=== PATIENT | male | born 1980 | race Caucasian/White ===

== ENCOUNTER → 2019-05-19 00:01 | Outpatient (RCR) | payer MEDICAID, SELFPAY | LOC: ONCMED 04-20 08:35 | PROVIDERS: Family Provider Family Medicine; Visit Provider Internal Medicine Hematology & Oncology | DX: Z51.12 Encounter for antineoplastic immunotherapy (principal); C83.39 Diffuse large B-cell lymphoma, extranodal and solid organ sites; R91.8 Other nonspecific abnormal finding of lung field; Z79.899 Other long term (current) drug therapy ==

== ENCOUNTER 2019-06-10 05:32 | Outpatient (RCR) | payer MEDICAID, SELFPAY ==
[2019-06-10 09:27] LABS: Basophils # 0.1 10^3/uL (0.0-0.1); Basophils % 0.6 %; Eosinophils # 0.1 10^3/uL (0.0-0.8); Eosinophils % 0.6 %; Hematocrit 42.9 % (42.0-52.0); Hemoglobin 14.5 g/dL (11.7-16.6); Lymphocytes # 0.8 10^3/uL (0.8-4.8); Lymphocytes % 4.8 %; Mean Corpuscular HGB Conc 33.8 g/dL (30.0-36.0); Mean Corpuscular Hemoglobin 31.1 pg (28.0-34.0); Mean Corpuscular Volume 92.1 fL (80-94); Mean Platelet Volume 9.4 fL (7.4-10.4); Monocytes # 1.1 10^3/uL (0.2-0.9); Monocytes % 6.3 %; Neutrophils % 86.9 %; Nucleated Red Blood Cells % 0 %; Platelet Count 522 10^3/cmm (130-400); Red Blood Count 4.66 10^6/uL (4.1-5.3); Red Cell Distribution Width 13.5 % (12.1-15.1); White Blood Count 17.3 10^3/uL (4.0-10.0)
[2019-06-10 09:42] LABS: Alanine Aminotransferase 13 U/L (0-41); Albumin Level 3.9 g/dL (3.5-5.2); Alkaline Phosphatase 129 IU/L (40-130); Anion Gap 14.7 (5-19); Aspartate Amino Transferase 11 U/L (0-40); Blood Urea Nitrogen 14 mg/dL (6-20); Calcium 9.9 mg/Dl (8.6-10.0); Carbon Dioxide 24 mmol/L (22-29); Chloride 101 mmol/L (98-107); Globulin 2.4 g/dL (1.3-4.6); Glomerular Filtration Rate 124.9 mL/min (90-130); Glucose 144 mg/dL (74-109); Lactate Dehydrogenase 166 U/L (135-225); Potassium 3.7 mmol/L (3.5-5.1); Sodium 136 mmol/L (136-145); Total Bilirubin 0.3 mg/dL (0.15-1.2); Total Protein 6.3 g/dL (6.6-8.7)
--- NOTE | 2019-06-10 10:19 | ONC FU_ITS ---
Dr. Lopez follow up note Patient: Giovany Hernandez Unit #: [id number]: 1980 Dicatated By: Iris Lopez M.D.Date of Visit:Jun 10, 2019 Onc Med Follow-up/Prog Note History of Present Illness: Mr. Hernandez is a 38 -year-old gentleman with a year-long history of sleep apnea like symptoms, and hearing loss in left ear. He required assistance with hearing aids. He was seen by Dr Mullen for chronic sinusitis and mild to moderate nasal obstruction. Dr Mullen noted left nasopharyngeal and oropharyngeal mass. Patient underwent biopsies on 05/28/2018 which confirmed high-grade B-cell lymphoma, with CD21 stain highlights many disrupted follicular dendritic cell meshwork associated with the B-cell infiltrate. While this finding may represent background tonsillar architertcture the probability of an underlying follicular lymphoma cannot be entirely excluded. Negative for EB virus, and cMyc was also negative. Patient denies any night sweats, patient denies any weight loss, patient denies any recurrent fever. E.g. no B symptoms. Patient denies any shortness of breath, patient denies any dysphagia, patient denies any abdominal pain or fullness, patient denies any other peripheral lymphadenopathy except fullness/mass in upper neck bilaterally. CT PET scan done on 06/26/2018 showed large highly FDG avid mass in the nasopharynx interposed between the spine and airways displacing the airway anteriorly and additional contiguous FDG avid lesion in the left palatine tonsil region with several large highly FDG avid lymph nodes with SUV maximum 13.6 and 14.95 lymph node anterior to the left sternocleidomastoid muscle with SUV of 14.6 there is a node in the right parapharyngeal space with SUV of 12.95 days and FDG avid mass lateral to the right submandibular gland with SUV of 6.1. Lateral to the right hilum with SUV of 1.29. No significant FDG avid nodules or lymph nodes are seen in the yonatan or mediastinum or below diaphragm. Spleen is within normal limit Mr. Hernandez was recommended to undergo R???CHOP. He did receive Neulasta support. His 3rd treatment was on 09/10/2018. Follow-up CT PET scan was ordered but patient lost Medicaid so could not get his CT PET scan and decided not to pursue further chemotherapy on his own. Multiple attempts were made to contact him but patient never responded and never called our office until came back on 03/19/2019 with progressive right submandibular mass, original primary site. Mr Hernandez presented complaining of progressive right submandibular mass the last 2 months. Patient said his night neck mass with chemotherapy was gone completely and he was supposed to get CT PET scan after third cycle of chemotherapy but he lost his Medicaid coverage so could not get CT PET done. He then decided not to do anything as he was feeling much better and never contacted my office, reason unknown. Denies any night sweats or fever chills denies any weight loss denies any nausea or vomiting denies any dysphagia denies any shortness of breath denies any abdominal fullness. Patient underwent to [facility] for evaluation on 03/07/2019 with left side pain and right lower jaw mass ???1-2 months, right neck soft tissue sonogram was ordered and done on 03/11/2019 which showed 3.7 x 3.2 x 4.4 cm mass in the right submandibular area and several regional hypoechoic structure measuring 1.8 x 1.3 x 1.2 cm are suggestive of atypical lymph nodes. . Echocardiogram done on 03/25/2019 showed ejection fraction 68% Underwent CT PET scan on 04/11/2019 and it showed asymmetrically increase activity in the right nasopharynx, suggesting lymphomatous involvement. A dominant, centrally necrotic mass in the right Ib cervical territory measures 4.5 x 3.7 cm with SUV of 6.2. A second lymph node in the right IIb territory measures 1.7 cm with SUV of 14.2. There are multiple FDG positive right lung nodules, consistent with metastatic disease. The dominant lesion measured 1.7 x 2 cm with SUV of 5.1. Next Scattered left lung nodules are too small to characterize with FDG imaging. Started on R- CHOP, cycle #4/6 (patient did not return after third cycle of chemotherapy given on 09/10/2018) on 04/14/2019. Came for follow-up, denies any specific complaints, as per sometime he feels dizzy but no headaches no blurred vision or double vision patient admitted using marijuana off and on and last and was used about 2 [address] ago[address] other street drugs. No fever or chills no nausea or vomiting no shortness of breath no peripheral numbness, no lower extremity edema. Tolerating systemic chemotherapy well and right mandible mass is responding very well Medications: Ativan Tablet Oral PRN, Citalopram Hydrobromide 1 Tablet (of 40 mg) Oral daily, predniSONE 1 Tablet (of 50 mg) Oral daily, PriLOSEC 1 Capsule (of 20 mg) Capsule Delayed Release Oral daily, Prochlorperazine Maleate Tablet Oral PRN Allergies: No Known Allergies. Review of Systems: Constitutional - Appetite is fair and weight is stable. No fever, chills, hot flashes, or night sweats. Energy level is good, ENMT - Negative for sinus congestion/drainage. No mouth sores, Hematologic/Lymphatic - No abnormal bruising or bleeding, Respiratory - No shortness of breath. No cough. No pleuritic pain or hemoptysis, Cardiovascular - No angina pain. No palpitations, Gastrointestinal - No nausea or vomiting. No heartburn or acid reflux. No diarrhea or constipation. No blood in the stool or black stools, Genitourinary (M) - No dysuria or hematuria. No urinary frequency. No urgency or incontinence, Musculoskeletal - No joint or bone pain, Neurologic - No headache. Pt reports occasional dizziness. No numbness/paresthesias or other focal neurologic symptoms, Psychiatric - No anxiety or depression. No insomnia. Vital Signs: Performed on Jun 10, 2019 09:50 Height - 68.00 in Weight - 168.8 lbs (LOW) BSA - 1.90 sq.m BMI - 25.67 Temperature - 97.6 F (LOW) Pulse - 85 /min Respiration - 24 /min BP - 109/70 mm(hg) O2 Sat - 97 % Pain - 0 Performance Status: 0 - Fully active, able to carry on all predisease activities without restrictions. (ECOG) Physical Examination: ENMT - No oral exudates, ulcers, masses, thrush or mucositis. Oropharynx clear. Tongue normal.Right submandibular mass is decreasing in size now about 2 cm. Nontender, Respiratory - Lungs are clear to auscultation without rhonchi or wheezing, Cardiovascular - Regular rate and rhythm of heart, Abdomen - Non-tender, non-distended, Good bowel sounds. No guarding or rebound tenderness. No pulsatile masses, Extremities - no edema. Lab/Imaging: Test performed on May 18, 2019 08:10 LDH (Total) 223 U/L Sodium 140 mmol/L Potassium 4.0 mmol/L Chloride 98 mmol/L CO2 25 mmol/L Anion Gap 21.0 BUN 11 mg/dL Creatinine 0.7 mg/dL Cr Clearance (Est) 171.1800 mL/min eGFR 124.9 mL/min Glucose 86 mg/dl Calcium 10.7 mg/dL Protein, Total 7.2 g/dL Albumin 5.6 g/dL Globulin 1.6 gm/dL Bilirubin, Total 0.3 mg/dL ALT (SGPT) 21 U/L AST (SGOT) 16 U/L Alkaline Phosphatase 154 U/L WBC 14.6 10 3/uL RBC 5.42 10 6/uL HGB 16.0 g/dL HCT 49.3 % MCV 91.0 fl MCH 29.5 pg MCHC 32.5 g/dl RDW 12.7 % Platelet Count 582 10 3/cmm MPV 10.1 fl Neutrophils 11.8 10 3/uL Lymphocytes 1.4 10 3/uL Monocytes 1.0 10 3/uL Eosinophils 0.3 10 3/uL Basophils 0.1 10 3/uL Neutrophil % 80.7 % Lymphocyte % 9.3 % Monocyte % 6.5 % Eosinophil % 1.9 % Basophils % 0.8 % Test performed on Apr 20, 2019 08:35 CBC Slide Review Y Test performed on Apr 13, 2019 13:30 Hepatitis B Surf Antigen Non-Reactive Hepatitis B Surface Ab < 3.5 STATUS of IMMUINITY Inconsistent with Immunity 0.0 - 8.5 mIU/mL Consistent with Immunity >8.5 mIU/mL Hepatitis B Core Ab, Total Non-Reactive Impression: High-grade B-cell lymphoma per biopsies of left nasopharyngeal and oropharyngeal mass done on 05/28/2018 Other morphological findings and CD21 stain highlights many disrupted follicular dendritic cell meshworks associated with B-cell infiltrate. While this findings may represent background tonsil architecture, the probability of an underlying follicular lymphoma cannot be entirely excluded Flow cytometry revealed monotypic B-cell population with a germinal center phenotype Immunohistochemistry showed CD20 positive B cells. CD3 highlights scattered admixed small T cells. B cells are positive for BCL 6 and BCL 2 bu negative for t cMYC . And negative for EB virus, Ki-67 reveals a proliferative index ranging from 60-90%. CT PET scan done on 06/26/2018 showed large FDG avid mass expanding the prevertebral soft tissue at the level of the nasopharynx displacing the airway anteriorly and compressing it with SUV of 14.96. There is an adjacent enlarged left palatine tonsil region with SUV of 14.95. There is an adjacent lymph node with SUV of 13.5 and a larger lymph node anterior to the left sternocleidomastoid muscle at the level of then will of mandible with SUV of 14.6. There is a node in the right parapharyngeal space with SUV of 12.95. There is an FDG avid mass lateral to the right submandibular gland with SUV of 6.01. Clinical stage II There is a small nodule lateral to the right hilum with SUV of 1.29. No significant FDG avid nodules are lymph node and yonatan or mediastinal. s/p 3 cycles of chemotherapy with R CHOP and CT PET scan. Was ordered and because of loss of Medicaid coverage he could not get that done and also never came back to office despite of repeated calls. patient is having progressive symptoms specific deep back pain or progressive right submandibular mass/lymphoma, insurance is still taking that time to approve PET scan, in that case we will proceed with CT scan of neck chest abdomen pelvis and also his repeat echocardiogram done on 03/25/2019 showed ejection fraction 68% in that case we we will proceed with R-CHOP, as patient responded very well in the past and plan to give him 3 cycles of this regimen followed by CT PET scan to assess response. Plan: Discussed with patient regarding his labs white blood count 17.3 hemoglobin 14.5 crit 42.9 platelets 522,000 CMP within normal limit except sugar 144 Clinically, patient is doing well tolerating systemic chemotherapy with CHOP-R well but with expected side effects. We'll proceed with last dose of chemotherapy and R CHOP and then he will return to clinic in 2 weeks with CBC CMP and will also consider follow-up CT PET scan to assess the disease response and if patient achieved complete remission then being young, will refer him to bone marrow transplant clinic for evaluation for high-dose chemotherapy with stem cell support. If there is a persistent or progressive disease then will consider salvage therapy Signed By: Iris Lopez M.D. <<Signature on File>>
[2019-06-10] MEDS: acetaminophen 325 mg Tablet 650 MG PO (10:48)
[2019-06-10] MEDS: sodium chloride 0.9% 500 ML 999 ML IV (11:46)
[2019-06-10] MEDS: pegfilgrastim 6 mg/0.6 mL Kit (onpro) SUBCUT (16:30)
== END 2019-06-19 23:59 | disposition home or self-care (01) ==
LOC: ONCMED 05:32
PROVIDERS: Family Provider Family Medicine; PCP Family Medicine; Visit Provider Internal Medicine Hematology & Oncology
DX: Z51.12 Encounter for antineoplastic immunotherapy (principal); Z51.11 Encounter for antineoplastic chemotherapy; C83.31 Diffuse large B-cell lymphoma, lymph nodes of head, face, and neck
CPT/HCPCS: 80053; 83615; 85025; 96367; 96372; 96411; 96413; 96415; 96417; 99214; J1100; J1200; J1453; J2469; J2505; J7040; J9000; J9070; J9312; J9370

== ENCOUNTER 2019-07-29 09:10 | Outpatient (CLI) | payer MEDICAID, SELFPAY ==
[2019-07-29 17:10] LABS: Alanine Aminotransferase 24 U/L (0-41); Albumin Level 3.9 g/dL (3.5-5.2); Alkaline Phosphatase 111 IU/L (40-130); Anion Gap 14.2 (5-19); Aspartate Amino Transferase 20 U/L (0-40); Blood Urea Nitrogen 21 mg/dL (6-20); Calcium 9.5 mg/dL (8.5-10.5); Carbon Dioxide 28 mmol/L (22-29); Chloride 104 mmol/L (98-107); Globulin 2.1 g/dL (1.3-4.6); Glomerular Filtration Rate 149.2 mL/min (90-130); Glucose 96 mg/dL (65-115); Osmolality Calculated 290 mOsm/kg (285-295); Potassium 4.2 mmol/L (3.5-5.1); Sodium 142 mmol/L (136-145); Total Bilirubin 0.2 mg/dL (0.15-1.2)
[2019-07-29 17:12] LABS: Basophils # 0.1 10^3/uL (0.0-0.1); Basophils % 0.8 %; Eosinophils # 0.5 10^3/uL (0.0-0.8); Eosinophils % 6.8 %; Hematocrit 43.4 % (42.0-52.0); Hemoglobin 13.7 g/dL (11.7-16.6); Lymphocytes # 1.2 10^3/uL (0.8-4.8); Mean Corpuscular HGB Conc 31.6 g/dL (30.0-36.0); Mean Corpuscular Hemoglobin 31.9 pg (28.0-34.0); Mean Corpuscular Volume 101.2 fL (80-94); Mean Platelet Volume 9.8 fL (7.4-10.4); Monocytes # 0.8 10^3/uL (0.2-0.9); Monocytes % 10.5 %; Neutrophils # 5.1 10^3/uL (1.8-7.7); Nucleated Red Blood Cells % 0 %; Platelet Count 330 10^3/cmm (130-400); Red Blood Count 4.29 10^6/uL (4.1-5.3); Red Cell Distribution Width 13.3 % (12.1-15.1); White Blood Count 7.7 10^3/uL (4.0-10.0)
== END 2019-07-29 09:11 | disposition home or self-care (01) ==
LOC: ONCMED 18:13
PROVIDERS: Family Provider Family Medicine; PCP Family Medicine; Visit Provider Internal Medicine Hematology & Oncology
DX: C85.10 Unspecified B-cell lymphoma, unspecified site (principal)
CPT/HCPCS: 80053; 85025

== ENCOUNTER 2019-09-14 11:43 | Outpatient (CLI) | payer MEDICAID, SELFPAY | END 2019-09-14 11:44 | disposition home or self-care (01) | LOC: ONCMED 11:44 | PROVIDERS: Family Provider Family Medicine; PCP Family Medicine; Visit Provider Internal Medicine Hematology & Oncology | DX: Z45.2 Encounter for adjustment and management of vascular access device (principal); C85.10 Unspecified B-cell lymphoma, unspecified site | CPT/HCPCS: 96523 ==

== ENCOUNTER 2019-09-15 13:26 | Emergency (ER) | payer MEDICAID, SELFPAY ==
[2019-09-15 13:27] VITALS: BP 108/65; PULSE 62; RESP 16; TEMP 37; O2SAT 99; BMI 24.3
--- NOTE | 2019-09-15 13:45 | W.ED.DIZZY ---
HPI - Dizziness General: Chief Complaint: Dizziness Stated Complaint: N/V, dizziness, weakness History of Present Illness: Associated symptoms: Reports malaise, nausea and vomiting Review of Systems General: Reports: 10 or more systems reviewed and unremarkable except in HPI and below Const: Reports: body aches, fatigue and malaise GI: Reports: nausea and vomiting Neuro: Reports: dizziness PFSH ED PFSH: Social History Smoking and tobacco status: current every day smoker cigarettes Packs smoked per day: 1 Quit status (tobacco): not considering quitting Second hand smoke exposure: No Alcohol intake: never Caregiver/support person: Yes Lives independently: No History of recent travel: No Current gender identity: Male Physical Exam Const: COMMON NORMALS: oriented x3 and alert GENERAL APPEARANCE: anxious, disheveled and ill appearing ORIENTATION/CONSCIOUSNESS: Yes awake, Yes oriented to person, Yes oriented to place and Yes oriented to time HENMT: MOUTH: moist mucous membranes not abnormal Neck/C-Spine: COMMON NORMALS: full ROM, no lymphadenopathy and no meningeal signs Resp: COMMON NORMALS: normal respiratory effort, no retractions, no use of accessory muscles and clear to auscultation bilaterally AUSCULTATION: clear to auscultation bilaterally Cardio: COMMON NORMALS: regular rate and regular rhythm RATE: regular rate RHYTHM: regular rhythm GI: COMMON NORMALS: normal to inspection, nondistended, normoactive bowel sounds Extremity: COMMON NORMALS: normal to inspection and full ROM Neuro: COMMON NORMALS: oriented x3 SENSORIUM/ORIENTATION: Yes alert, Yes oriented to person, Yes oriented to place and Yes oriented to time MENINGEAL SIGNS: Yes no meningeal signs Skin: COMMON NORMALS: no rashes or lesions noted, no jaundice and no mottling GENERAL SKIN EXAM: no rashes or lesions noted Course Vital Signs: Vital signs: Vital Signs Temperature 98.6 F 09/15/19 13:27 Pulse Rate 62 09/15/19 13:27 Respiratory Rate 16 09/15/19 13:27 Blood Pressure 108/65 09/15/19 14:02 Pulse Oximetry 99 09/15/19 13:27 MDM - Dizziness Lab Data: Labs: Lab Results 09/15/19 09/15/19 09/15/19 Range/Units 13:50 13:50 13:50 WBC 12.2 H (4.0-10.0) 10^3/ uL RBC 5.46 H (4.1-5.3) 10^6/u L Hgb 16.7 H (11.7-16.6) g/dL Hct 51.2 (42.0-52.0) % MCV 93.8 (80-94) fL MCH 30.6 (28.0-34.0) pg MCHC 32.6 (30.0-36.0) g/dL RDW 11.8 L (12.1-15.1) % Plt Count 358 (130-400) 10^3/c mm MPV 9.1 (7.4-10.4) fL Neut % (Auto) 84.8 % Lymph % (Auto) 7.3 % [place] % (Auto) 6.5 % Eos % (Auto) 0.7 % Baso % (Auto) 0.3 % Neut # (Auto) 10.3 H (1.8-7.7) 10^3/u L Lymph # (Auto) 0.9 (0.8-4.8) 10^3/u L [place] # (Auto) 0.8 (0.2-0.9) 10^3/u L Eos # (Auto) 0.1 (0.0-0.8) 10^3/u L Baso # (Auto) 0.0 (0.0-0.1) 10^3/u L Nucleated RBC % (a uto) 0 % Nucleated RBCs # 0.0 /100WBC Sodium 142 (136-145) mmol/L Potassium 4.4 (3.5-5.1) mmol/L Chloride 99 (98-107) mmol/L Carbon Dioxide 31 H (22-29) mmol/L Anion Gap 16.4 (5-19) BUN 16 (6-20) mg/dL Creatinine 0.9 (0.7-1.2) mg/dL GFR Calculation 93.5 (90-130) mL/min Glucose 100 (65-115) mg/dL Calculated Osmolal ity 290 (285-295) mOsm/k g Lactate 1.7 (0.5-2.2) mmol/L Calcium 10.4 (8.5-10.5) mg/dL Total Bilirubin 0.3 (0.15-1.2) mg/dL AST 14 (0-40) U/L ALT 18 (0-41) U/L Alkaline Phosphata se 149 H (40-130) IU/L Total Protein 7.2 (6.6-8.7) g/dL Albumin 4.6 (3.5-5.2) g/dL Globulin 2.6 (1.3-4.6) g/dL Lipase 31 (13-60) U/L TSH 1.73 (0.27-4.20) uIU/ mL Discharge Plan Discharge Prescriptions: No Action citalopram 40 mg tablet 40 mg PO DAILY RF: 0 omeprazole 20 mg capsule,delayed release(DR/EC) 20 mg PO DAILY RF: 0 Coding Level of Care Code ED Smelter Operator for Sarai Rodriguez
[2019-09-15 13:59] LABS: Basophils % 0.3 %; Eosinophils # 0.1 10^3/uL (0.0-0.8); Eosinophils % 0.7 %; Hematocrit 51.2 % (42.0-52.0); Hemoglobin 16.7 g/dL (11.7-16.6); Lymphocytes # 0.9 10^3/uL (0.8-4.8); Lymphocytes % 7.3 %; Mean Corpuscular HGB Conc 32.6 g/dL (30.0-36.0); Mean Corpuscular Hemoglobin 30.6 pg (28.0-34.0); Mean Corpuscular Volume 93.8 fL (80-94); Mean Platelet Volume 9.1 fL (7.4-10.4); Monocytes # 0.8 10^3/uL (0.2-0.9); Monocytes % 6.5 %; Neutrophils # 10.3 10^3/uL (1.8-7.7); Neutrophils % 84.8 %; Nucleated Red Blood Cells % 0 %; Platelet Count 358 10^3/cmm (130-400); Red Blood Count 5.46 10^6/uL (4.1-5.3); Red Cell Distribution Width 11.8 % (12.1-15.1); White Blood Count 12.2 10^3/uL (4.0-10.0)
[2019-09-15 14:02] VITALS: BP 108/65
[2019-09-15] MEDS: sodium chloride 0.9% 1,000 ML 999 ML IV ×2 (14:07→15:37)
[2019-09-15 14:12] LABS: Lactate (Lactic Acid level) 1.7 mmol/L (0.5-2.2)
[2019-09-15 14:22] LABS: Alanine Aminotransferase 18 U/L (0-41); Albumin Level 4.6 g/dL (3.5-5.2); Alkaline Phosphatase 149 IU/L (40-130); Anion Gap 16.4 (5-19); Aspartate Amino Transferase 14 U/L (0-40); Blood Urea Nitrogen 16 mg/dL (6-20); Calcium 10.4 mg/dL (8.5-10.5); Carbon Dioxide 31 mmol/L (22-29); Chloride 99 mmol/L (98-107); Creatinine Clr Calc Pharmacy 108.1327; Globulin 2.6 g/dL (1.3-4.6); Glomerular Filtration Rate 93.5 mL/min (90-130); Glucose 100 mg/dL (65-115); Lipase 31 U/L (13-60); Osmolality Calculated 290 mOsm/kg (285-295); Potassium 4.4 mmol/L (3.5-5.1); Sodium 142 mmol/L (136-145); Thyroid Stimulating Hormone 1.73 uIU/mL (0.27-4.20); Total Bilirubin 0.3 mg/dL (0.15-1.2); Total Protein 7.2 g/dL (6.6-8.7)
[2019-09-15 15:02] LABS: Add Urine Microscopic? NO
[2019-09-15 15:10] VITALS: PULSE 56; RESP 15; O2SAT 98
[2019-09-15 15:13] LABS: Urine Appearance Clear (CLEAR); Urine Color Yellow (Yellow); pH Urine 9 (5-7)
[2019-09-15 15:14] LABS: Bilirubin Urine Neg (NEGATIVE); Blood Urine Neg (Negative); Glucose Urine UA Norm (Normal); Ketones Urine Negative (Negative); Leukocyte Esterase Urine Negative (Negative); Nitrate Urine Negative (Negative); Protein Urine Neg (Negative); Sulfosalicylic Acid Urine Negative (Negative); Urobilinogen Urine Norm (Negative)
[2019-09-15 16:00] VITALS: BP 102/64; PULSE 48; RESP 15; O2SAT 100
[2019-09-15 16:50] VITALS: BP 100/66; PULSE 51; RESP 16; O2SAT 100
== END 2019-09-15 16:48 | disposition home or self-care (01) ==
PROVIDERS: Emergency Provider Family Medicine; Family Provider Family Medicine; PCP Family Medicine
DX: R42 Dizziness and giddiness (principal); F17.210 Nicotine dependence, cigarettes, uncomplicated
CPT/HCPCS: 12345; 36415; 80053; 81003; 83605; 83690; 84443; 85025; 87040; 96360; 96361; 96374; 99283; J7030

== ENCOUNTER 2019-10-01 07:04 | Outpatient (CLI) | payer MEDICAID, SELFPAY ==
--- NOTE | 2019-10-01 18:02 | ONC FU_ITS ---
Dr. Lopez follow up note Patient: Giovany Hernandez Unit #: [id number]: [id number] Dicatated By: Iris Lopez M.D.Date of Visit:October 01, 2019 Onc Med Follow-up/Prog Note History of Present Illness: Mr. Hernandez is a 38 -year-old gentleman with a year-long history of sleep apnea like symptoms, and hearing loss in left ear. He required assistance with hearing aids. He was seen by Dr Mullen for chronic sinusitis and mild to moderate nasal obstruction. Dr Mullen noted left nasopharyngeal and oropharyngeal mass. Patient underwent biopsies on 05/28/2018 which confirmed high-grade B-cell lymphoma, with CD21 stain highlights many disrupted follicular dendritic cell meshwork associated with the B-cell infiltrate. While this finding may represent background tonsillar architertcture the probability of an underlying follicular lymphoma cannot be entirely excluded. Negative for EB virus, and cMyc was also negative. Patient denies any night sweats, patient denies any weight loss, patient denies any recurrent fever. E.g. no B symptoms. Patient denies any shortness of breath, patient denies any dysphagia, patient denies any abdominal pain or fullness, patient denies any other peripheral lymphadenopathy except fullness/mass in upper neck bilaterally. CT PET scan done on 06/26/2018 showed large highly FDG avid mass in the nasopharynx interposed between the spine and airways displacing the airway anteriorly and additional contiguous FDG avid lesion in the left palatine tonsil region with several large highly FDG avid lymph nodes with SUV maximum 13.6 and 14.95 lymph node anterior to the left sternocleidomastoid muscle with SUV of 14.6 there is a node in the right parapharyngeal space with SUV of 12.95 days and FDG avid mass lateral to the right submandibular gland with SUV of 6.1. Lateral to the right hilum with SUV of 1.29. No significant FDG avid nodules or lymph nodes are seen in the yonatan or mediastinum or below diaphragm. Spleen is within normal limit Mr. Hernandez was recommended to undergo R???CHOP. He did receive Neulasta support. His 3rd treatment was on 09/10/2018. Follow-up CT PET scan was ordered but patient lost Medicaid so could not get his CT PET scan and decided not to pursue further chemotherapy on his own. Multiple attempts were made to contact him but patient never responded and never called our office until came back on 03/19/2019 with progressive right submandibular mass, original primary site. Mr Hernandez presented complaining of progressive right submandibular mass the last 2 months. Patient said his night neck mass with chemotherapy was gone completely and he was supposed to get CT PET scan after third cycle of chemotherapy but he lost his Medicaid coverage so could not get CT PET done. He then decided not to do anything as he was feeling much better and never contacted my office, reason unknown. Denies any night sweats or fever chills denies any weight loss denies any nausea or vomiting denies any dysphagia denies any shortness of breath denies any abdominal fullness. Patient underwent to [facility] for evaluation on 03/07/2019 with left side pain and right lower jaw mass ???1-2 months, right neck soft tissue sonogram was ordered and done on 03/11/2019 which showed 3.7 x 3.2 x 4.4 cm mass in the right submandibular area and several regional hypoechoic structure measuring 1.8 x 1.3 x 1.2 cm are suggestive of atypical lymph nodes. . Echocardiogram done on 03/25/2019 showed ejection fraction 68% Underwent CT PET scan on 04/11/2019 and it showed asymmetrically increase activity in the right nasopharynx, suggesting lymphomatous involvement. A dominant, centrally necrotic mass in the right Ib cervical territory measures 4.5 x 3.7 cm with SUV of 6.2. A second lymph node in the right IIb territory measures 1.7 cm with SUV of 14.2. There are multiple FDG positive right lung nodules, consistent with metastatic disease. The dominant lesion measured 1.7 x 2 cm with SUV of 5.1. Next Scattered left lung nodules are too small to characterize with FDG imaging. Started on R- CHOP, cycle #4/6 (patient did not return after third cycle of chemotherapy given on 09/10/2018) on 04/14/2019.and subsequently completed #6/6 chemotherapy with R CHOP on 06/10/2019 follow-up CT PET scan done on 07/18/2019 showed interval resolution of right nasopharyngeal uptake. Right cervical adenopathy demonstrate an essentially complete response to therapy bilateral pulmonary nodules are now subcentimeter in size and FDG negative. X Patient again, Lost follow-up and did not pursue further treatment or evaluation Came for follow-up, complaining of nausea vomiting for the last 3 weeks, has lost 20+ pounds weight. Patient said he went to hospital 10 days ago, he was diagnosed with gastroenteritis and treated with IV fluids and antibiotics and discharge home, since then he still having nausea vomiting, dizziness and off and on blurred vision. Denies any dysphagia, denies any hemoptysis or hematemesis, denies any night sweats, denies recent fever, denies any focal weakness. When asked about no-show on his return appointments patient said because of personal and social/financial reasons, he could not keep up with appointments moreover he was feeling very well until 3 weeks ago when he started having nausea vomiting. Medications: Citalopram Hydrobromide 1 Tablet (of 40 mg) Oral daily, predniSONE 1 Tablet (of 50 mg) Oral daily, PriLOSEC 1 Capsule (of 20 mg) Capsule Delayed Release Oral daily, Prochlorperazine Maleate Tablet Oral PRN Allergies: No Known Allergies. Review of Systems: Constitutional - Appetite is poor and weight is decreasing. No fever, chills, hot flashes, or night sweats. Energy level is poor, ENMT - Negative for sinus congestion/drainage. No mouth sores, Hematologic/Lymphatic - No abnormal bruising or bleeding, Respiratory - No shortness of breath. No cough. No pleuritic pain or hemoptysis, Cardiovascular - No angina pain. No palpitations, Gastrointestinal - Positive for nausea and vomiting. No heartburn or acid reflux. No diarrhea or constipation. No blood in the stool or black stools, Genitourinary (M) - No dysuria or hematuria. No urinary frequency. No urgency or incontinence, Musculoskeletal - No joint or bone pain, Integumentary - Pt has multiple scabbed spots on his abdomen that he states have been present for a couple of months , Neurologic - No headache. Pt reports occasional dizziness. No numbness/paresthesias or other focal neurologic symptoms, Psychiatric - Positive for anxiety and depression. No insomnia. Vital Signs: Performed on October 01, 2019 08:07 Height - 68.00 in Weight - 146.6 lbs (LOW) BSA - 1.79 sq.m BMI - 22.29 Temperature - 98.0 F (LOW) Pulse - 88 /min Respiration - 21 /min BP - 118/81 mm(hg) O2 Sat - 100 % Pain - 9 Performance Status: 2 - Ambulatory/capable of all self-care, unable to perform any work activities. Up and about more than 50% of waking hours. (ECOG) Physical Examination: ENMT - dry oral mucosa, no mouth sores, no jaundice, right upper neck/submandibular mass, nontender. No peripheral lymphadenopathy, Respiratory - Lungs are clear, Cardiovascular - Regular rate and rhythm of heart, Abdomen - soft ,bowel sounds present, no rebound tenderness, Extremities - no edema rash. Lab/Imaging: Test performed on Jul 29, 2019 09:10 Sodium 142 mmol/L Potassium 4.2 mmol/L Chloride 104 mmol/L CO2 28 mmol/L Anion Gap 14.2 BUN 21 mg/dL Creatinine 0.6 mg/dL Cr Clearance (Est) 177.2400 mL/min eGFR 149.2 mL/min Glucose 96 mg/dL Calcium 9.5 mg/dL Protein, Total 6.0 g/dL Albumin 3.9 g/dL Globulin 2.1 g/dL Bilirubin, Total 0.2 mg/dL ALT (SGPT) 24 U/L AST (SGOT) 20 U/L Alkaline Phosphatase 111 IU/L WBC 7.7 10 3/uL RBC 4.29 10 6/uL HGB 13.7 g/dL HCT 43.4 % MCV 101.2 fL MCH 31.9 pg MCHC 31.6 g/dL RDW 13.3 % Platelet Count 330 10 3/cmm MPV 9.8 fL Neutrophils 5.1 10 3/uL Lymphocytes 1.2 10 3/uL Monocytes 0.8 10 3/uL Eosinophils 0.5 10 3/uL Basophils 0.1 10 3/uL Neutrophil % 66.0 % Lymphocyte % 15.0 % Monocyte % 10.5 % Eosinophil % 6.8 % Basophils % 0.8 % Test performed on Jun 10, 2019 09:00 LDH (Total) 166 U/L Test performed on Apr 20, 2019 08:35 CBC Slide Review Y Test performed on Apr 13, 2019 13:30 Hepatitis B Surf Antigen Non-Reactive Hepatitis B Surface Ab < 3.5 STATUS of IMMUINITY Inconsistent with Immunity 0.0 - 8.5 mIU/mL Consistent with Immunity >8.5 mIU/mL Hepatitis B Core Ab, Total Non-Reactive Impression: High-grade B-cell lymphoma per biopsies of left nasopharyngeal and oropharyngeal mass done on 05/28/2018 Other morphological findings and CD21 stain highlights many disrupted follicular dendritic cell meshworks associated with B-cell infiltrate. While this findings may represent background tonsil architecture, the probability of an underlying follicular lymphoma cannot be entirely excluded Flow cytometry revealed monotypic B-cell population with a germinal center phenotype Immunohistochemistry showed CD20 positive B cells. CD3 highlights scattered admixed small T cells. B cells are positive for BCL 6 and BCL 2 bu negative for t cMYC . And negative for EB virus, Ki-67 reveals a proliferative index ranging from 60-90%. CT PET scan done on 06/26/2018 showed large FDG avid mass expanding the prevertebral soft tissue at the level of the nasopharynx displacing the airway anteriorly and compressing it with SUV of 14.96. There is an adjacent enlarged left palatine tonsil region with SUV of 14.95. There is an adjacent lymph node with SUV of 13.5 and a larger lymph node anterior to the left sternocleidomastoid muscle at the level of then will of mandible with SUV of 14.6. There is a node in the right parapharyngeal space with SUV of 12.95. There is an FDG avid mass lateral to the right submandibular gland with SUV of 6.01. Clinical stage II There is a small nodule lateral to the right hilum with SUV of 1.29. No significant FDG avid nodules are lymph node and yonatan or mediastinal. s/p 3 cycles of chemotherapy with R CHOP and CT PET scan. Was ordered and because of loss of Medicaid coverage he could not get that done and also never came back to office despite of repeated calls. patient is having progressive symptoms specific deep back pain or progressive right submandibular mass/lymphoma, insurance is still taking that time to approve PET scan, in that case we will proceed with CT scan of neck chest abdomen pelvis and also his repeat echocardiogram done on 03/25/2019 showed ejection fraction 68% in that case we we will proceed with R-CHOP, as patient responded very well in the past and plan to give him 3 cycles of this regimen followed by CT PET scan to assess response. Plan: Discussed with patient regarding his overall condition, persistent nausea vomiting, etiology unclear but could be multifactorial including gastric outlet obstruction due to central lymphadenopathy or peptic ulcer disease or esophageal compression due to mediastinal lymphadenopathy or brain metastases or metabolic, but recent labs done in hospital showed no evidence of hypercalcemia or other electrolytes imbalance.. On exam there is no evidence of significant peripheral lymphadenopathy or organomegaly. At this point we will sending to ER for evaluation and management as patient appears dehydrated, due to persistent nausea vomiting. Case was discussed with the ER physician and we would recommend inpatient care and also recommend CT scan of chest abdomen pelvis and CT scan of the head to rule out intracranial pathology. Case was discussed with patient and his again concerned about being noncompliant and natural history of disease. Patient and his expressed full understanding regarding risks involved being noncompliant with the treatment and follow-up. Signed By: Iris Lopez M.D. <<Signature on File>>
== END 2019-10-01 07:05 | disposition home or self-care (01) ==
PROVIDERS: PCP Family Medicine; Visit Provider Internal Medicine Hematology & Oncology
DX: C85.19 Unspecified B-cell lymphoma, extranodal and solid organ sites (principal); R11.2 Nausea with vomiting, unspecified; M54.9 Dorsalgia, unspecified; Z91.19 Patient's noncompliance with other medical treatment and regimen; Z92.21 Personal history of antineoplastic chemotherapy
CPT/HCPCS: 99214

== ENCOUNTER 2019-10-01 08:57 | Emergency (ER) | payer MEDICAID, SELFPAY ==
[2019-10-01 09:03] VITALS: BP 123/87; PULSE 82; RESP 17; TEMP 36.4; O2SAT 99; BMI 22.1
--- NOTE | 2019-10-01 09:09 | W.ED.ABDPA2 ---
HPI - Abdominal Pain General: Chief Complaint: General Medical Stated Complaint: dizzy Time Seen by Provider: 10/01/19 08:58 History of Present Illness: HPI narrative: Patient is a 38 year old male sent to the ED from a follow up appointment with his oncologist, Dr. Lopez. He has a history of high grade lymphoma, treated with 3 rounds of chemo twice and in remission by PET scan in June. The patient missed some follow up and presented today with several weeks of N/V/abdominal discomfort, dizziness, and several days of neck pain. His initial [facility] presentation with a lump on the right side of his neck, which he says is enlarging again. He did not have the GI symptoms in the past. He has not kept much down at all and has only had one BM in the past few weeks. He says that he has lost about 20 pounds. No one else in the home is sick. He has not traveled. He has city water, but mostly drinks bottled water. he was seen in the ED a few weeks ago with the same symptoms and treated symptomatically. Dr. Lopez recommends a CT, IV fluids, admit, EGD. MD elicited complaint: abdominal pain Pertinent past history: constipation Pain Consistency: intermittent Location: Diffuse Severity: moderate Quality: cramping and burning Radiation: none Migration to: no migration Associated Symptoms: Reports anorexia, change in bowel habits, dyspepsia, nausea, poor appetite and vomiting; Denies diarrhea, dysuria, fever(s) and hematochezia Treatments prior to arrival: NSAIDs Review of Systems Const: Reports: change in appetite, change in weight, fatigue and malaise; Denies: fever(s) or night sweats ENMT: Reports: throat pain Card: Denies: chest pain, palpitations or dyspnea on exertion Resp: Denies: dyspnea, productive cough or non-productive cough GI: Reports: nausea, vomiting and change in bowel habits; Denies: diarrhea or hematochezia : Denies: dysuria Musc: Reports: neck pain Neuro: Reports: dizziness; Denies: headache(s) Endo: Denies: polyuria or polydipsia Gordo/Lymph: Reports: enlarged lymph nodes PFSH ED PFSH: Social History Smoking and tobacco status: current some day smoker cigarettes Packs smoked per day: 1 Quit status (tobacco): not considering quitting Second hand smoke exposure: No Alcohol intake: never Caregiver/support person: Yes Lives independently: No History of recent travel: No Current gender identity: Male Physical Exam Const: COMMON NORMALS: no acute distress and patient oriented x3 GENERAL APPEARANCE: cooperative and ill appearing NUTRITIONAL APPEARANCE: underweight HENMT: FACE & SINUS: normal facial exam Neck/C-Spine: COMMON NORMALS: full ROM, supple and no JVD GENERAL: Yes Mass present (neck) CERVICAL SPINE: No Paracervical muscle tenderness and No Paracervical spasm Lymph: LYMPHATIC: lymphadenopathy (right submandibular) Resp: COMMON NORMALS: normal respiratory effort, No retractions, No use of accessory muscles and clear to auscultation bilaterally AUSCULTATION: clear to auscultation bilaterally Cardio: COMMON NORMALS: no JVD, regular rate, regular rhythm and No murmurs present (Cardio) RATE: regular rate RHYTHM: regular rhythm GI: COMMON NORMALS: Normal to inspection, nondistended, normoactive bowel sounds present and Soft to palpation PALPATION: Yes Soft to palpation, No Hepatomegaly present and No Splenomegaly present PERCUSSION: normal to percussion : COMMON NORMALS: Yes no CVA tenderness BLADDER/KIDNEY EXAM: Yes no CVA tenderness Back/Pelvis: COMMON NORMALS: no CVA tenderness and thoracic and lumbar spine normal to inspection Extremity: COMMON NORMALS: normal to inspection Neuro: COMMON NORMALS: patient oriented x3 Psych: COMMON NORMALS: mental status grossly normal, Normal thought process present, cooperative, normal affect and speech normal SPEECH: Yes normal speech THOUGHT PROCESS: Normal thought process present Skin: NARRATIVE SKIN EXAM: pale Course Reevaluation(s): Reevaluation #1: Still with pain in the neck area, nausea. Repeat doses of zofran and morphine, as well as toradol. Repeat IVF bolus. Will admit as CT shows recurrance of lymphoma is likely and involving the pharynx.. Time: 12:08 Vital Signs: Vital signs: Vital Signs Temperature 97.6 F 10/01/19 09:03 Pulse Rate 82 10/01/19 09:03 Respiratory Rate 16 10/01/19 12:22 Blood Pressure 123/87 10/01/19 09:03 Pulse Oximetry 99 10/01/19 09:03 MDM - Abdominal Pain MDM Narrative: Medical decision making narrative: History of lymphoma - thought to be in remission in June - but now with weight loss, persistent vomiting for several weeks. Difficulty swallowing and neck pain. CT with increasing lymph nodes, masses, thickening of the soft tissues in the nasopharynx and tonsillar regions. Will require admission for pain control and IV hydration as he is not able to tolerate PO. Also concern that his port may not be working and this needs to be addressed in the hospital as well. Consult hospitalist for admission per Dr. Lopez. Lab Data: Labs: Lab Results 10/01/19 10/01/19 10/01/19 Range/Units 10:12 10:12 10:29 WBC 15.0 H (4.0-10.0) 10^3/ uL RBC 6.25 H (4.1-5.3) 10^6/u L Hgb 19.2 H (11.7-16.6) g/dL Hct 55.2 H (42.0-52.0) % MCV 88.3 (80-94) fL MCH 30.7 (28.0-34.0) pg MCHC 34.8 (30.0-36.0) g/dL RDW 11.2 L (12.1-15.1) % Plt Count 430 H (130-400) 10^3/c mm MPV 9.7 (7.4-10.4) fL Neut % (Auto) 83.0 % Lymph % (Auto) 7.6 % [place] % (Auto) 7.7 % Eos % (Auto) 0.9 % Baso % (Auto) 0.5 % Neut # (Auto) 12.5 H (1.8-7.7) 10^3/u L Lymph # (Auto) 1.1 (0.8-4.8) 10^3/u L [place] # (Auto) 1.2 H (0.2-0.9) 10^3/u L Eos # (Auto) 0.1 (0.0-0.8) 10^3/u L Baso # (Auto) 0.1 (0.0-0.1) 10^3/u L Nucleated RBC % (a uto) 0 % Nucleated RBCs # 0.0 /100WBC Sodium 138 (136-145) mmol/L Potassium 3.3 L (3.5-5.1) mmol/L Chloride 92 L (98-107) mmol/L Carbon Dioxide 31 H (22-29) mmol/L Anion Gap 18.3 (5-19) BUN 16 (6-20) mg/dL Creatinine 0.9 (0.7-1.2) mg/dL GFR Calculation 93.5 (90-130) mL/min Glucose 99 (65-115) mg/dL Calculated Osmolal ity 282 L (285-295) mOsm/k g Calcium 11.0 H (8.5-10.5) mg/dL Total Bilirubin 0.5 (0.15-1.2) mg/dL AST 14 (0-40) U/L ALT 15 (0-41) U/L Alkaline Phosphata se 144 H (40-130) IU/L Total Protein 7.7 (6.6-8.7) g/dL Albumin 4.9 (3.5-5.2) g/dL Globulin 2.8 (1.3-4.6) g/dL Lipase 26 (13-60) U/L Urine Color Dark yellow (Yellow) Urine Appearance Clear (CLEAR) Urine pH 8 H (5-7) Ur Specific Gravit y 1.010 (1.005-1.030) Urine Protein Neg (Negative) Urine Glucose (UA) Norm (Normal) Urine Ketones 1+ H (Negative) Urine Blood Neg (Negative) Urine Nitrate Negative (Negative) Urine Bilirubin Neg (NEGATIVE) Urine Urobilinogen 4 H (Negative) mg/dL Ur Leukocyte Jodee ase Negative (Negative) Discharge Plan Discharge Prescriptions: No Action citalopram 40 mg tablet 40 mg PO DAILY RF: 0 omeprazole 20 mg capsule,delayed release(DR/EC) 20 mg PO DAILY PRN (Reason: unknown) RF: 0 ondansetron 4 mg tablet,disintegrating 4 mg PO Q6H PRN (Reason: nausea and vomiting) Qty: 14 RF: 0 dicyclomine 10 mg capsule 10 mg PO TID Qty: 14 RF: 0 Coding Level of Care Code ED Auto Top Mechanic for Chg Fwd Exam Comprehensive
[2019-10-01] MEDS: sodium chloride 0.9% 1,000 ML 999 ML IV ×2 (10:18→13:18)
[2019-10-01] MEDS: ondansetron 2 mg/ML SDV 2 mL 4 MG IVP ×2 (10:18→12:23)
[2019-10-01 10:25] LABS: Basophils # 0.1 10^3/uL (0.0-0.1); Basophils % 0.5 %; Eosinophils # 0.1 10^3/uL (0.0-0.8); Eosinophils % 0.9 %; Hematocrit 55.2 % (42.0-52.0); Hemoglobin 19.2 g/dL (11.7-16.6); Lymphocytes # 1.1 10^3/uL (0.8-4.8); Lymphocytes % 7.6 %; Mean Corpuscular HGB Conc 34.8 g/dL (30.0-36.0); Mean Corpuscular Hemoglobin 30.7 pg (28.0-34.0); Mean Corpuscular Volume 88.3 fL (80-94); Mean Platelet Volume 9.7 fL (7.4-10.4); Monocytes # 1.2 10^3/uL (0.2-0.9); Monocytes % 7.7 %; Neutrophils # 12.5 10^3/uL (1.8-7.7); Nucleated Red Blood Cells % 0 %; Platelet Count 430 10^3/cmm (130-400); Red Blood Count 6.25 10^6/uL (4.1-5.3); Red Cell Distribution Width 11.2 % (12.1-15.1)
[2019-10-01 10:36] LABS: Add Urine Microscopic? NO
[2019-10-01 10:37] LABS: Alanine Aminotransferase 15 U/L (0-41); Albumin Level 4.9 g/dL (3.5-5.2); Alkaline Phosphatase 144 IU/L (40-130); Anion Gap 18.3 (5-19); Aspartate Amino Transferase 14 U/L (0-40); Blood Urea Nitrogen 16 mg/dL (6-20); Carbon Dioxide 31 mmol/L (22-29); Chloride 92 mmol/L (98-107); Globulin 2.8 g/dL (1.3-4.6); Glomerular Filtration Rate 93.5 mL/min (90-130); Glucose 99 mg/dL (65-115); Lipase 26 U/L (13-60); Osmolality Calculated 282 mOsm/kg (285-295); Potassium 3.3 mmol/L (3.5-5.1); Sodium 138 mmol/L (136-145); Total Bilirubin 0.5 mg/dL (0.15-1.2); Total Protein 7.7 g/dL (6.6-8.7)
--- NOTE | 2019-10-01 10:40 | CT_ITS ---
WS: [id number] CT NECK WITH CONTRAST HISTORY: h/o lymphoma, neck pain and neck mass TECHNIQUE: Contiguous 5 mm axial images are performed through the neck with intravenous contrast. Sag ittal and coronal reformats are also submitted. All CT scans at [facility] use at least o ne of these dose optimization techniques: automated exposure control; mA and/or kV adjustment per pat ient size (includes targeted exams where dose is matched to clinical indication); or iterative recons truction. CONTRAST: CONTRAST: Omnipaque 300; 95 mL IV. DLP: 730.06 mGy.cm COMPARISON: PET/CT 07/18/2019 New since the PET/CT of 07/18/2019 is development of a RIGHT neck mass inseparable from the RIGHT subm andibular gland. This mass is well-circumscribed measuring 2.3 x 1.8 cm. There are a few additional s mall cervical chain lymph nodes bilaterally. No additional enlargement. There is also significant enlargement of the retropharyngeal and oropharyngeal soft tissues since the prior examination. Most significant enlargement involves the RIGHT nasopharynx and the RIGHT palatin e and lingular tonsil region. There is no discrete mass but overall soft tissue enlargement. There is no enhancing mass to suggest abscess. There is soft tissue encroachment into the nasopharynx from th e RIGHT. Visualized paranasal sinuses and mastoid air cells are normal. Biapical soft tissue nodules at the apices with the largest measuring 7 mm on the RIGHT. Not present on the prior CT of 07/18/2019. CT/CT neck w con* [id number] IMPRESSION: 1. Significant change in appearance of the neck since the prior PET/CT of . Suspect recurrent lymphoma. 2. Soft tissue mass inseparable from the RIGHT submandibular gland may be a re current adenopathy measuring 2.3 x 1.8 cm. 3. Significant enlargement and soft tissue prominence involving the nasopharyn x and the tonsillar bed. Greatest on the RIGHT. May be inflammatory or infectio us or neoplastic. Moderate encroachment into the nasopharyngeal airway. 4. New subcentimeter bilateral apical nodules. Suspect metastatic disease.
--- NOTE | 2019-10-01 10:40 | CT_ITS ---
WS: [id number] CT CHEST, ABDOMEN AND PELVIS WITH CONTRAST. HISTORY: h/o lymphoma, vomiting/abdominal pain/weight loss TECHNIQUE: Contiguous 5 mm axial imaging performed through the chest, abdomen and pelvis with IV cont rast, oral contrast has not been provided. Coronal and sagittal reformats chest. Coronal and sagittal reformats through the abdomen and pelvis. All CT scans at [facility] use at least one of these dose optimization techniques: automated exposure control; mA and/or kV adjustment per patient size (includes targeted exams where dose is matched to clinical indication); or iterative reconstruct ion. CONTRAST: Omnipaque 300; 95 mL IV. DLP: 1082.41 mGy.cm COMPARISON: PET CT November 16, [address]: Development of numerous pulmonary nodules since the prior study. Pulmonary nodules are bila teral with the largest measuring up to 9 mm. No pneumonia. There is a Port-A-Cath present with the ti p in the distal SVC. Mildly dominant hilar soft tissue with the largest lymph node measuring 6 mm. He art size is normal. Small hiatal hernia. Mild atherosclerosis aorta. Normal size pulmonary artery. No pleural effusion. Abdomen CT: Mild hepatic steatosis along the falciform ligament. No enhancing lesions within the live r. Spleen is normal size. Normal pancreas. Normal gallbladder. Normal RIGHT adrenal gland. Low-attenu ation 18 mm mass within the LEFT adrenal gland. This mass was present on the prior PET/CT and not sig nificantly changed. May represent a benign adenoma. No renal obstruction. No ascites or free fluid. N o significant adenopathy. Pelvic CT: Normal appearance of the GI tract. No retroperitoneal adenopathy. No free fluid in the pel vis. No bone lesions are identified. CT/CT chest abd pel w con* IMPRESSION: 1. Development of new subcentimeter pulmonary nodules within both lungs since the PET/CT of 07/18/2019. Suspicious for recurrent B-cell lymphoma. Recommend fo llow-up PET/CT imaging. 2. Subcentimeter hilar lymph nodes. 3. Stable LEFT adrenal mass which was negative on the prior PET/CT. 4. No abdomen or pelvic adenopathy.
[2019-10-01 10:46] LABS: Bilirubin Urine Neg (NEGATIVE); Blood Urine Neg (Negative); Glucose Urine UA Norm (Normal); Ketones Urine 1+ (Negative); Leukocyte Esterase Urine Negative (Negative); Nitrate Urine Negative (Negative); Protein Urine Neg (Negative); Urine Appearance Clear (CLEAR); Urine Color Dark Yellow (Yellow); Urobilinogen Urine 4 mg/dL (Negative); pH Urine 8 (5-7)
[2019-10-01] MEDS: iohexol 300 mg/mL 100 mL Btl IV ×2 (11:30→11:31)
[2019-10-01] MEDS: ketorolac 30 mg/mL INJ 15 MG IVP (12:20)
[2019-10-01 12:22] VITALS: RESP 16
[2019-10-01] MEDS: morphine 4 mg/mL SDV 1 mL IVP (12:22)
[2019-10-01] MEDS: metoclopramide 5 mg/mL SDV 2 mL IVP (13:27)
--- NOTE | 2019-10-01 13:45 | PM.HP ---
Providers/Chief Complaint Primary Care Provider: Freeman Anderson DO Chief Complaint: dizzy History of Present Illness Giovany Hernandez is a 38 year old male with a past medical history of high-grade B-cell lymphoma, per biopsies of nasopharyngeal and oropharyngeal mass, status post chemotherapy R-CHOP, history of noncompliance, history of noncompliance, history of lost to follow-up who presents to [facility] due to complaints of nausea, vomiting, lightheadedness, abdominal pain for the last week. Patient states that for the last week he has felt nauseous, vomiting, bilious, has felt lightheaded, dizzy, has generalized abdominal pain, no fevers, no sick contacts, no recent travel, no exposure to COVID-19, no cough, no shortness of breath, no dysuria, no diarrhea, no sick contacts. Patient states that he is not been able to keep anything down for the last few days, last bowel movement was many days ago. Review of Systems Const: Denies: fever(s), chills, fatigue or malaise Eyes: Denies: change in vision or blurry vision ENMT: Denies: throat pain, mouth pain or nasal congestion Card: Denies: chest pain, palpitations or irregular heart rhythm Resp: Denies: dyspnea, productive cough, non-productive cough or wheezing GI: Reports: abdominal pain, nausea and vomiting; Denies: hematemesis, coffee ground emesis, heartburn, diarrhea, constipation, hematochezia or melena : Denies: flank pain, difficulty urinating, dysuria or urinary frequency Musc: Denies: neck pain or back pain Skin/Breast: Denies: rash Neuro: Denies: headache(s), dizziness or vertigo Psych: Denies: anxiety or depression Endo: Denies: polyuria or polydipsia Medications/Allergies Home Medications Medication Instructions Recorded Confirmed Last Taken Type citalopram 40 mg tablet 40 mg PO DAILY 09/15/19 10/01/19 09/14/19 History dicyclomine 10 mg PO TID #14 cap 09/15/19 10/01/19 Unknown Rx omeprazole 20 mg PO DAILY PRN 09/15/19 10/01/19 09/14/19 History ondansetron 4 mg PO Q6H PRN #14 tab 09/15/19 10/01/19 09/30/19 Rx Allergies Allergy/AdvReac Type Severity Reaction Status Date / Time No Known Allergies Allergy Verified 09/15/19 13:31 PFSH Acute PFSH: Medical History (Updated 10/01/19 @ 14:04 by Sammy De La Garza MD) Anxiety and depression Social History Smoking and tobacco status: current some day smoker cigarettes Packs smoked per day: 1 Quit status (tobacco): not considering quitting Second hand smoke exposure: No Alcohol intake: never Caregiver/support person: Yes Lives independently: No History of recent travel: No Current gender identity: Male Vitals/I&O/Wt Last Vital Signs Temp 97.6 F 10/01/19 09:03 Pulse 82 10/01/19 09:03 Resp 16 10/01/19 12:22 BP 123/87 10/01/19 09:03 Pulse Ox 99 10/01/19 09:03 Weight last 48 hrs Weight 66.224 kg Physical Exam Const: COMMON NORMALS: no acute distress and patient oriented x3 GENERAL APPEARANCE: cooperative and comfortable HENMT: COMMON NORMALS: normocephalic HEAD & SCALP: normocephalic Eye: COMMON NORMALS: Equal, round and reactive pupils present, EOMs intact bilaterally and no papilledema GENERAL EYE: appearance normal, both eyes and all related structures PUPIL: Yes Equal, round and reactive pupils present DIRECT OPHTHALMOSCOPY: Yes no papilledema Neck/C-Spine: COMMON NORMALS: full ROM, no lymphadenopathy, no JVD and Thyroid normal THYROID: Thyroid normal Lymph: LYMPHATIC: no lymphadenopathy noted Resp: COMMON NORMALS: normal respiratory effort, No retractions, No use of accessory muscles and clear to auscultation bilaterally AUSCULTATION: clear to auscultation bilaterally Cardio: COMMON NORMALS: no JVD, regular rate, regular rhythm, S1 normal heart sound present, S2 normal heart sound present, No gallops present (Cardio), No clicks present (Cardio) and No murmurs present (Cardio) RATE: regular rate RHYTHM: regular rhythm HEART SOUNDS: S1 normal heart sound present and S2 normal heart sound present GI: COMMON NORMALS: Normal to inspection, nondistended, normoactive bowel sounds present, Soft to palpation, non-tender and No hepatosplenomegaly present PALPATION: Yes Soft to palpation and Yes No hepatosplenomegaly present Extremity: COMMON NORMALS: normal to inspection, full ROM and no pedal edema Neuro: COMMON NORMALS: patient oriented x3, CN's II-XII intact bilaterally, moves all extremities and no focal motor deficits Psych: COMMON NORMALS: mental status grossly normal, Normal thought process present and cooperative THOUGHT PROCESS: Normal thought process present Data : 10/01/19 10:12 10/01/19 10:12 A&P Assessment and plan (1) Intractable nausea and vomiting: -Consult Dr. Mcintyre for EGD to rule out gastritis, esophagitis Plan: -Keep n.p.o. -Continue IV fluids -Zofran nausea, promethazine -Morphine for pain -We will order CT head to rule out intracranial mass Status: Acute (2) Hypokalemia: Will replace Status: Acute (3) B-cell lymphoma: -History of B-cell lymphoma per biopsies of left nasopharyngeal and a oropharyngeal mass done on 05/28/2018 -Status post 3 cycles of chemotherapy with R-CHOP -Has been lost to follow-up multiple times -CT of the neck shows concerns for recurrent lymphoma: -1. Significant change in appearance of the neck since the prior PET/CT of 07/18/2019. Suspect recurrent lymphoma. 2. Soft tissue mass inseparable from the RIGHT submandibular gland may be a recurrent adenopathy measuring 2.3 x 1.8 cm. 3. Significant enlargement and soft tissue prominence involving the nasopharynx and the tonsillar bed. Greatest on the RIGHT. May be inflammatory or infectious or neoplastic. Moderate encroachment into the nasopharyngeal airway. 4. New subcentimeter bilateral apical nodules. Suspect metastatic disease. -CT of the chest shows: -1. Development of new subcentimeter pulmonary nodules within both lungs since the PET/CT of 07/18/2019. Suspicious for recurrent B-cell lymphoma. Recommend follow-up PET/CT imaging. -Likely recurrence of B-cell lymphoma secondary to noncompliance, lost to follow-up follow-up Status: Acute (4) Anxiety and depression: Status: Acute Additional A&P Information Patient is a full code, Lovenox for DVT prophylaxis Attestations Medical Necessity Statement*: Patient requires hospitalization for intractable nausea vomiting, inpatient, greater than 2 midnight, requiring EGD, concern for recurrent B-cell lymphoma Coding Level of Care Code Acute Delivery And Mail Sorter for Chg Fwd Diagnoses Intractable nausea and vomiting R11.2 Hypokalemia E87.6 B-cell lymphoma C85.10 Anxiety and depression F41.9; F32.9
--- NOTE | 2019-10-01 14:56 | CT_ITS ---
WS: [id number] CT HEAD NONCONTRAST HISTORY: n/v, headache, diplopia TECHNIQUE: Contiguous axial imaging performed through the brain in 2.5 mm imaging. Bone and soft tiss ue windows. Sagittal and coronal reformats reviewed. All CT scans at [facility] use at le ast one of these dose optimization techniques: automated exposure control; mA and/or kV adjustment pe r patient size (includes targeted exams where dose is matched to clinical indication); or iterative r econstruction. DLP: 753.82 mGy.cm COMPARISON: No similar studies. Contrast was given for prior neck CT and chest, abdomen and pelvis CT performed on the same day. There is a dense mass which is probably an enhancing mass or hypercellular mass centered in the poste rior fossa. Mass is centered in the RIGHT cerebellum measuring 3.7 x 3.4 x 3.0 cm and crosses the mid line to the LEFT. There is significant mass effect upon the lateral ventricle. Additional enhancing n odules are noted within the lateral ventricles towards the vertex. 12 mm nodule in the ependyma of th e LEFT lateral ventricle. Smaller 8 mm nodule on the RIGHT. There are additional very small areas of enhancement in the posterior third ventricle and the floor of the RIGHT lateral ventricle. There is n o hydrocephalus at this time. Increased density along the tentorium is probably not blood but relate d to previous contrast injection. There is additional focal enhancement adjacent to the anterior horn of the RIGHT lateral ventricle which is probably intraparenchymal nodule. Paranasal sinuses: Mucoperiosteal thickening throughout the ethmoid sinuses. Mastoid air cells: Well pneumatized. Calvarium and scalp: Skull is intact with no soft tissue edema or swelling. Notified Sammy De La Garza MD at 10/01/2019 3:[address]/CT head wo con* [id number] IMPRESSION: 1. Posterior fossa mass centered in the RIGHT cerebellum with extension across the midline significant mass effect upon the fourth ventricle measures 3.7 x 3 .4 x 3.0 cm. 2. Additional enhancing nodules which are ependymal based and in the floor the third ventricle and adjacent to the anterior horn of the RIGHT lateral ventric le. 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 3. Although there is no hydrocephalus at this time there is significant mass e ffect upon the fourth ventricle.
--- NOTE | 2019-10-01 15:12 | PC.NURSE ---
patient returned from ct
[2019-10-01 15:51] LABS: Procalcitonin 0.07 ng/mL (0-0.5)
[2019-10-01 15:52] LABS: Thyroid Stimulating Hormone 2.51 uIU/mL (0.27-4.20)
[2019-10-01 15:53] LABS: INR 1.04 (0.8-1.2)
[2019-10-01 15:54] LABS: Lactic Sepsis W/Reflex 2.3 mmol/L (0.5-2.2)
[2019-10-01 16:02] LABS: Magnesium 2.3 mg/dL (1.7-2.3); Phosphorus 2.9 mg/dL (2.5-4.5)
[2019-10-01 16:09] LABS: Estmated Average Glucose 117; Hemoglobin A1C 5.7 % (4.0-6.0)
[2019-10-01] MEDS: dexamethasone 10 mg/mL INJ IVP (16:18)
[2019-10-01 17:12] LABS: Reflex Lactate Order REFLEX LACTIC ORDERD
[2019-10-01 17:19] VITALS: BP 108/78; PULSE 56; RESP 18; O2SAT 97
== END 2019-10-01 17:24 ==
LOC: ER 09:17
PROVIDERS: Family Medicine; Emergency Provider Emergency Medicine; PCP Family Medicine
DX: R42 Dizziness and giddiness (principal); F17.210 Nicotine dependence, cigarettes, uncomplicated
CPT/HCPCS: 12345; 70450; 70491; 71260; 74177; 80053; 81003; 83036; 83605; 83690; 83735; 84100; 84145; 84443; 85025; 85610; 96375; 99283; J1100; J1885; J2270; J2405; J2765; J7030; Q9967

== ENCOUNTER 2020-06-15 09:07 | Outpatient (CLI) | payer MEDICAID, SELFPAY ==
--- NOTE | 2020-06-17 12:47 | ONC FU_ITS ---
Dr. Lopez follow up note Patient: Giovany Hernandez < Unit #: [id number]: 1980 Dicatated By: Iris Lopez M.D.Date of Visit:Jun 15, 2020 Onc Med Follow-up/Prog Note History of Present Illness: Mr. Hernandez is a 38 -year-old gentleman with a year-long history of sleep apnea like symptoms, and hearing loss in left ear. He required assistance with hearing aids. He was seen by Dr Mullen for chronic sinusitis and mild to moderate nasal obstruction. Dr Mullen noted left nasopharyngeal and oropharyngeal mass. Patient underwent biopsies on 05/28/2018 which confirmed high-grade B-cell lymphoma, with CD21 stain highlights many disrupted follicular dendritic cell meshwork associated with the B-cell infiltrate. While this finding may represent background tonsillar architertcture the probability of an underlying follicular lymphoma cannot be entirely excluded. Negative for EB virus, and cMyc was also negative. Patient denies any night sweats, patient denies any weight loss, patient denies any recurrent fever. E.g. no B symptoms. Patient denies any shortness of breath, patient denies any dysphagia, patient denies any abdominal pain or fullness, patient denies any other peripheral lymphadenopathy except fullness/mass in upper neck bilaterally. CT PET scan done on 06/26/2018 showed large highly FDG avid mass in the nasopharynx interposed between the spine and airways displacing the airway anteriorly and additional contiguous FDG avid lesion in the left palatine tonsil region with several large highly FDG avid lymph nodes with SUV maximum 13.6 and 14.95 lymph node anterior to the left sternocleidomastoid muscle with SUV of 14.6 there is a node in the right parapharyngeal space with SUV of 12.95 days and FDG avid mass lateral to the right submandibular gland with SUV of 6.1. Lateral to the right hilum with SUV of 1.29. No significant FDG avid nodules or lymph nodes are seen in the yonatan or mediastinum or below diaphragm. Spleen is within normal limit Mr. Hernandez was recommended to undergo R???CHOP. He did receive Neulasta support. His 3rd treatment was on 09/10/2018. Follow-up CT PET scan was ordered but patient lost Medicaid so could not get his CT PET scan and decided not to pursue further chemotherapy on his own. Multiple attempts were made to contact him but patient never responded and never called our office until came back on 03/19/2019 with progressive right submandibular mass, original primary site. Mr Hernandez presented complaining of progressive right submandibular mass the last 2 months. Patient said his night neck mass with chemotherapy was gone completely and he was supposed to get CT PET scan after third cycle of chemotherapy but he lost his Medicaid coverage so could not get CT PET done. He then decided not to do anything as he was feeling much better and never contacted my office, reason unknown. Denies any night sweats or fever chills denies any weight loss denies any nausea or vomiting denies any dysphagia denies any shortness of breath denies any abdominal fullness. Patient underwent to [facility] for evaluation on 03/07/2019 with left side pain and right lower jaw mass ???1-2 months, right neck soft tissue sonogram was ordered and done on 03/11/2019 which showed 3.7 x 3.2 x 4.4 cm mass in the right submandibular area and several regional hypoechoic structure measuring 1.8 x 1.3 x 1.2 cm are suggestive of atypical lymph nodes. . Echocardiogram done on 03/25/2019 showed ejection fraction 68% Underwent CT PET scan on 04/11/2019 and it showed asymmetrically increase activity in the right nasopharynx, suggesting lymphomatous involvement. A dominant, centrally necrotic mass in the right Ib cervical territory measures 4.5 x 3.7 cm with SUV of 6.2. A second lymph node in the right IIb territory measures 1.7 cm with SUV of 14.2. There are multiple FDG positive right lung nodules, consistent with metastatic disease. The dominant lesion measured 1.7 x 2 cm with SUV of 5.1. Next Scattered left lung nodules are too small to characterize with FDG imaging. Started on R- CHOP, cycle #4/6 (patient did not return after third cycle of chemotherapy given on 09/10/2018) on 04/14/2019.and subsequently completed #6/6 chemotherapy with R CHOP on 06/10/2019 follow-up CT PET scan done on 07/18/2019 showed interval resolution of right nasopharyngeal uptake. Right cervical adenopathy demonstrate an essentially complete response to therapy bilateral pulmonary nodules are now subcentimeter in size and FDG negative. X Patient again, Lost follow-up and did not pursue further treatment or evaluation Until on October 01, 2019 Came for follow-up, complaining of nausea vomiting for the last 3 weeks, has lost 20+ pounds weight. Patient said he went to hospital 10 days ago, he was diagnosed with gastroenteritis and treated with IV fluids and antibiotics and discharge home, since then he still having nausea vomiting, dizziness and off and on blurred vision. Denies any dysphagia, denies any hemoptysis or hematemesis, denies any night sweats, denies recent fever, denies any focal weakness. When asked about no-show on his return appointments patient said because of personal and social/financial reasons, he could not keep up with appointments moreover he was feeling very well until 3 weeks ago when he started having nausea vomiting. And at that time he was sent to [facility] for evaluation As per family he was transferred to [facility] in [place] And had CT scan of neck done on October 02, 2019 which showed 4 cm nasopharyngeal mucosal mass and on October 03, 2019 underwent MRI scan of the brain which shows midline cerebellar mass which may arise from the ventricular ependyma. Size is 2.5 cm. Prominent surrounding vasogenic edema with effacement of fourth ventricle. But no active hydrocephalus. Additional bilateral lateral ventricular enhancing ependymal nodules are present. Differential include metastasis versus TAIL SAWYER lymphoma where on October 15, 2019 he underwent ultrasound-guided right cervical lymph node biopsy and report came back diffuse large B-cell lymphoma, germinal center cell type, CD10 positive, no MYC rearrangement and no fusion of MYC and IGH was observed so unlikely high-grade B-cell lymphoma. Also had right nasopharynx mass resection/biopsy which confirmed diffuse large B-cell lymphoma also underwent spinal tap on October 06, 2019 which showed no malignant cells identified. Bone marrow evaluation was done on October 06, 2019 showed no clonal B-cell population or increased blast cells seen on flow cytometry and no involvement of B-cell lymphoma so in September 2019, he was started on high-dose methotrexate alternating with DHAP-R Which was started on October 15, 2019 and second cycle was given on November 16, 2019 and third cycle January 11, 2020 and after that patient again lost follow-up as per medical record had multiple no-shows for scanning and follow-up And follow-up CT scan of neck done on January 14, 2020 showed right-sided nasopharyngeal mass does not appear significantly from October 02, 2019 MRI scan of the brain done on January 13, 2020 showed response to therapy with resolution of previously seen enhancing nodule along the margins of lateral ventricles. Posterior fossa lesion along the margin of fourth ventricle has significantly decreased in size. There is a residual enhancing lesion measuring 13 mm and edema at this location has nearly resolved. No new intracranial lesion identified. Right-sided nasopharyngeal enhancing mass appears similar to the previous exam done in September 2019 ,Repeat CT scan of chest abdomen pelvis done on June 03, 2020 showed no pathologically enlarged thoracic lymph node #2 waxing and waning appearance of nodular opacities suggestive of atypical infection or inflammatory process. Development of extensive tree-in-bud opacities within the bilateral lungs component of chronic aspiration pneumonia is not excluded. Unchanged left adrenal nodule. Repeat CT scan of neck done on June 03, 2020 shows marked interval enlargement of previously demonstrated right nasopharyngeal mass lesion now approaches 8 cm in size with obstruction of nasopharyngeal airway and associated progressive postobstructive paranasal sinus patient was admitted to [facility] in [place] on June 08, 2020 with progressive discomfort in right side of face and Facial droop and numbness disease progression was confirmed with CT scan of the neck as per medical oncologist note patient could not go for treatment and follow-up because of noncompliance and transportation problemAnd now being transferred to [place] for further management today, patient is complaining of persistent right facial drooling and discomfort and in fact hard to understand and patient's is very agitated and somewhat concerned about her financial situation and social issues. Patient denies any dysphagia, denies any blurred vision or double vision denies any hemoptysis or hematemesis denies any fever chills denies any night sweats denies any diarrhea or constipation but poor appetite Medications: Citalopram Hydrobromide 1 Tablet (of 40 mg) Oral daily, PriLOSEC 1 Capsule (of 20 mg) Capsule Delayed Release Oral daily, Prochlorperazine Maleate Tablet Oral PRN Allergies: No Known Allergies. Review of Systems: Constitutional - Appetite is poor and weight is decreasing. No fever, chills, hot flashes, or night sweats. Energy level is poor, ENMT - Negative for sinus congestion/drainage. No mouth sores, Hematologic/Lymphatic - No abnormal bruising or bleeding, Respiratory - No shortness of breath. No cough. No pleuritic pain or hemoptysis, Cardiovascular - No angina pain. No palpitations, Gastrointestinal - Positive for nausea and vomiting. No heartburn or acid reflux. No diarrhea or constipation. No blood in the stool or black stools, Genitourinary (M) - No dysuria or hematuria. No urinary frequency. No urgency or incontinence, Musculoskeletal - No joint or bone pain, Integumentary - Pt has multiple scabbed spots on his abdomen that he states have been present for a couple of months , Neurologic - No headache. Pt reports occasional dizziness. No numbness/paresthesias or other focal neurologic symptoms, Psychiatric - Positive for anxiety and depression. No insomnia. Vital Signs: Performed on Jun 15, 2020 09:15 Height - 68.00 in Weight - 143.2 lbs (LOW) BSA - 1.77 sq.m BMI - 21.77 Temperature - 98.1 F (LOW) Pulse - 110 /min (HIGH) Respiration - 22 /min BP - 131/78 mm(hg) O2 Sat - 100 % Pain - 7 Performance Status: 2 - Ambulatory/capable of all self-care, unable to perform any work activities. Up and about more than 50% of waking hours. (ECOG) Physical Examination: ENMT - Poor oral hygiene, right nasopharyngeal mass,Right upper neck mass palpable, nontender Respiratory - Lungs are clear to auscultation, Cardiovascular - Regular rate and rhythm of heart, Abdomen - Soft, bowel sounds present, Extremities - No visible edema. Lab/Imaging: Most recent lab results are not available for this patient. 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 While this findings may represent background tonsil architecture, the probability of an underlying follicular lymphoma cannot be entirely excluded Flow cytometry revealed monotypic B-cell population with a germinal center phenotype Immunohistochemistry showed CD20 positive B cells. CD3 highlights scattered admixed small T cells. B cells are positive for BCL 6 and BCL 2 bu negative for t cMYC . And negative for EB virus, Ki-67 reveals a proliferative index ranging from 60-90%. CT PET scan done on 06/26/2018 showed large FDG avid mass expanding the prevertebral soft tissue at the level of the nasopharynx displacing the airway anteriorly and compressing it with SUV of 14.96. There is an adjacent enlarged left palatine tonsil region with SUV of 14.95. There is an adjacent lymph node with SUV of 13.5 and a larger lymph node anterior to the left sternocleidomastoid muscle at the level of then will of mandible with SUV of 14.6. There is a node in the right parapharyngeal space with SUV of 12.95. There is an FDG avid mass lateral to the right submandibular gland with SUV of 6.01. Clinical stage II There is a small nodule lateral to the right hilum with SUV of 1.29. No significant FDG avid nodules are lymph node and yonatan or mediastinal. s/p 3 cycles of chemotherapy with R CHOP and CT PET scan. Was ordered and because of loss of Medicaid coverage he could not get that done and also never came back to office despite of repeated calls. patient is having progressive symptoms specific deep back pain or progressive right submandibular mass/lymphoma, insurance is still taking that time to approve PET scan, in that case we will proceed with CT scan of neck chest abdomen pelvis and also his repeat echocardiogram done on 03/25/2019 showed ejection fraction 68% in that case we we will proceed with R-CHOP, as patient responded very well in the past and plan to give him 3 cycles of this regimen followed by CT PET scan to assess response. Plan: Discussed with patient and his regarding his disease status and concern is TAIL SAWYER involvement for which he may require intrathecal therapy and also due to suboptimal response to aggressive therapy with high-dose methotrexate alternate with DHAP-R, causing concern regarding chemo resistant disease, ideally patient will be better served in a tertiary care center with high-dose chemotherapy with stem cell support or palliative therapy with radiation therapy for immediate symptom control and systemic therapy afterwards. And also discussed about hospice care. Patient is agreeable to hospice care but wants to discuss with other family members and she is also considering taking him to cancer center [place]. At this point will refer him to radiation oncology for evaluation for palliative radiation therapy in the meantime if family decided for aggressive treatment plan then will refer him to tertiary care center [facility] for further evaluation unless hospice is considered. Patient return to clinic in 1 week with CBC CMP Signed By: Iris Lopez M.D. <<Signature on File>>
== END 2020-06-15 09:08 | disposition home or self-care (01) ==
LOC: ONCMED 09:09
PROVIDERS: PCP Family Medicine; Visit Provider Internal Medicine Hematology & Oncology
DX: C85.18 Unspecified B-cell lymphoma, lymph nodes of multiple sites (principal); G89.3 Neoplasm related pain (acute) (chronic); Z79.899 Other long term (current) drug therapy
CPT/HCPCS: 99214

== ENCOUNTER 2020-06-22 05:56 | Outpatient (CLI) | payer MEDICAID, SELFPAY ==
--- NOTE | 2020-06-22 09:54 | N.ONRAD NP_ITS ---
Radiation Oncology Consultation Patient Name: Giovany Hernandez Date of : 1980 Date of Service: 06/22/2020 Attending Physician: Con Pires M.D. Giovany Hernandez was seen in consultation this afternoon at the request of Jennifer Lopez M.D. for consideration of head and neck radiotherapy for the palliative management of diffuse large B-cell lymphoma of the nasopharynx. He initially presented with sleep apnea symptoms. He was treated medically for chronic sinusitis and nasal polyps without improvement. A diagnostic nasal endoscopy under anesthesia performed by Damir Mcneill M.D. in May 2018 identified an exophytic mass within the left nasopharynx extending into the left oropharynx. Biopsies obtained diagnosed a high-grade B-cell lymphoma. PET CT staging ordered in June 2018 revealed the nasopharyngeal mass and bilateral cervical lymphadenopathy, He received R-CHOP chemotherapy under the supervision of Jennifer Lopez M.D. (3 cycles administered between July 2018 through August 2018). The patient was lost to follow-up after losing his medical insurance (Medicaid). In February 2019, he was evaluated for an enlarging right neck mass. Ultrasonography identified a 1.4 cm right submandibular mass and multiple atypical lymph nodes. Restaging PET/CT completed in March 2019 re-demonstrated the nasopharyngeal mass and cervical lymphadenopathy in addition to multiple right lung nodules consistent with metastatic disease. An additional 3 cycles of R-CHOP was administered (March 2019 through May 2019). A restaging PET/CT completed in June 2019 demonstrated a complete response. In September 2019, he complained of nausea and vomiting. An MR of the brain demonstrated a midline cerebellar mass measuring 2.5 cm with effacement of the fourth ventricle. He was transferred to [facility] in [place], [place] for further management. Biopsy of the right nasopharyngeal mass and right cervical lymph node confirmed a large B-cell lymphoma (no MYC rearrangement nor fusion of MYC/IGH). Bone marrow biopsy and lateral fluid evaluation was negative for lymphoma. High-dose methotrexate alternating with DHAP-R was instituted between the dates of September 2019 through December 2019; 3 cycles). He failed to continue observation until he presented with right facial numbness at [facility]. MR obtained on May 10, 2020 (images requested and independently reviewed in [facility]) showed a 7.4 cm right nasopharyngeal soft tissue mass with extension to the skull base (abuts the middle cranial fossa floor) and oropharynx. High-dose glucocorticoid supplementation was instituted and at the patient's request was discharged. The patient will be referred to [facility] in [facility] for evaluation. I would reserve palliative radiotherapy at this time. Signed by: Dr. Con Pires 06/22/2020 9:53:37 AM
[2020-06-22 10:14] LABS: Basophils % 0.1 %; Hematocrit 37.2 % (42.0-52.0); Hemoglobin 12.6 g/dL (11.7-16.6); Lymphocytes # 0.3 10^3/uL (0.8-4.8); Mean Corpuscular HGB Conc 33.9 g/dL (30.0-36.0); Mean Corpuscular Hemoglobin 28.8 pg (28.0-34.0); Mean Corpuscular Volume 85.1 fL (80-94); Mean Platelet Volume 8.9 fL (7.4-10.4); Monocytes # 0.1 10^3/uL (0.2-0.9); Monocytes % 0.8 %; Neutrophils # 14.27 10^3/uL (1.8-7.7); Neutrophils % 96.8 %; Nucleated Red Blood Cells % 0 %; Platelet Count 460 10^3/cmm (130-400); Red Blood Count 4.37 10^6/uL (4.1-5.3); Red Cell Distribution Width 14.3 % (12.1-15.1); White Blood Count 14.8 10^3/uL (4.0-10.0)
[2020-06-22 10:45] LABS: Alanine Aminotransferase 18 U/L (0-41); Albumin Level 4.2 g/dL (3.5-5.2); Alkaline Phosphatase 144 IU/L (40-130); Anion Gap 16.2 (5-19); Aspartate Amino Transferase 42 U/L (0-40); Blood Urea Nitrogen 25 mg/dL (6-20); Carbon Dioxide 26 mmol/L (22-29); Chloride 94 mmol/L (98-107); Globulin 2.9 g/dL (1.3-4.6); Glomerular Filtration Rate 124.3 mL/min (90-130); Glucose 98 mg/dL (65-115); Osmolality Calculated 278 mOsm/kg (285-295); Potassium 4.2 mmol/L (3.5-5.1); Sodium 132 mmol/L (136-145); Total Bilirubin 0.6 mg/dL (0.15-1.2); Total Protein 7.1 g/dL (6.6-8.7)
--- NOTE | 2020-06-30 20:49 | ONC FU_ITS ---
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 Hernandez is a 38 -year-old gentleman with a year-long history of sleep apnea like symptoms, and hearing loss in left ear. He required assistance with hearing aids. He was seen by Dr Mullen for chronic sinusitis and mild to moderate nasal obstruction. Dr Mullen noted left nasopharyngeal and oropharyngeal mass. Patient underwent biopsies on 05/28/2018 which confirmed high-grade B-cell lymphoma, with CD21 stain highlights many disrupted follicular dendritic cell meshwork associated with the B-cell infiltrate. While this finding may represent background tonsillar architertcture the probability of an underlying follicular lymphoma cannot be entirely excluded. Negative for EB virus, and cMyc was also negative. Patient denies any night sweats, patient denies any weight loss, patient denies any recurrent fever. E.g. no B symptoms. Patient denies any shortness of breath, patient denies any dysphagia, patient denies any abdominal pain or fullness, patient denies any other peripheral lymphadenopathy except fullness/mass in upper neck bilaterally. CT PET scan done on 06/26/2018 showed large highly FDG avid mass in the nasopharynx interposed between the spine and airways displacing the airway anteriorly and additional contiguous FDG avid lesion in the left palatine tonsil region with several large highly FDG avid lymph nodes with SUV maximum 13.6 and 14.95 lymph node anterior to the left sternocleidomastoid muscle with SUV of 14.6 there is a node in the right parapharyngeal space with SUV of 12.95 days and FDG avid mass lateral to the right submandibular gland with SUV of 6.1. Lateral to the right hilum with SUV of 1.29. No significant FDG avid nodules or lymph nodes are seen in the yonatan or mediastinum or below diaphragm. Spleen is within normal limit Mr. Hernandez was recommended to undergo R???CHOP. He did receive Neulasta support. His 3rd treatment was on 09/10/2018. Follow-up CT PET scan was ordered but patient lost Medicaid so could not get his CT PET scan and decided not to pursue further chemotherapy on his own. Multiple attempts were made to contact him but patient never responded and never called our office until came back on 03/19/2019 with progressive right submandibular mass, original primary site. Mr Hernandez presented complaining of progressive right submandibular mass for for least 2 months. Mr Hernandez said his night neck mass was gone completely after the chemotherapy. He was supposed to get CT PET scan after third cycle of chemotherapy but he lost his Medicaid coverage so could not get CT PET done. He then decided not to do anything as he was feeling much better and never contacted the [facility] office, reason unknown. He denies any night sweats or fever chills denies any weight loss denies any nausea or vomiting denies any dysphagia denies any shortness of breath denies any abdominal fullness. Patient underwent to [facility] for evaluation on 03/07/2019 with left side pain and right lower jaw mass ???1-2 months, right neck soft tissue sonogram was ordered and done on 03/11/2019 which showed 3.7 x 3.2 x 4.4 cm mass in the right submandibular area and several regional hypoechoic structure measuring 1.8 x 1.3 x 1.2 cm are suggestive of atypical lymph nodes. Echocardiogram done on 03/25/2019 showed ejection fraction 68% Mr Hernandez underwent CT PET scan on 04/11/2019 and it showed asymmetrically increase activity in the right nasopharynx, suggesting lymphomatous involvement. A dominant, centrally necrotic mass in the right Ib cervical territory measures 4.5 x 3.7 cm with SUV of 6.2. A second lymph node in the right IIb territory measures 1.7 cm with SUV of 14.2. There are multiple FDG positive right lung nodules, consistent with metastatic disease. The dominant lesion measured 1.7 x 2 cm with SUV of 5.1. Scattered left lung nodules are too small to characterize with FDG imaging. Started on R- CHOP, cycle #4/6 (patient did not return after third cycle of chemotherapy given on 09/10/2018) on 04/14/2019.and subsequently completed #6/6 chemotherapy with R CHOP on 06/10/2019 follow-up CT PET scan done on 07/18/2019 showed interval resolution of right nasopharyngeal uptake. Right cervical adenopathy demonstrate an essentially complete response to therapy bilateral pulmonary nodules are now subcentimeter in size and FDG negative. Patient again, Lost follow-up and did not pursue further treatment or evaluation until on October 01, 2019. He presented for follow-up, complaining of nausea vomiting for 3 weeks and a 20+ pound weightloss. He went to hospital 10 days ago, he was diagnosed with gastroenteritis and treated with IV fluids and antibiotics and discharge home. since then he still having nausea vomiting, dizziness and off and on blurred vision. Denies any dysphagia, denies any hemoptysis or hematemesis, denies any night sweats, denies recent fever, denies any focal weakness. When asked about no-show on his return appointments patient said because of personal and social/financial reasons, he could not keep up with appointments moreover he was feeling very well until 3 weeks ago when he started having nausea vomiting. And at that time he was sent [place] [facility] [place] As per family he was transferred to [facility] in [place] And had CT scan of neck done on October 02, 2019 which showed 4 cm nasopharyngeal mucosal mass and on October 03, 2019 underwent MRI scan of the brain which shows midline cerebellar mass which may arise from the ventricular ependyma. Size is 2.5 cm. Prominent surrounding vasogenic edema with effacement of fourth ventricle. But no active hydrocephalus. Additional bilateral lateral ventricular enhancing ependymal nodules are present. 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 Also had right nasopharynx mass resection/biopsy which confirmed diffuse large B-cell lymphoma also underwent spinal tap on October 06, 2019 which showed no malignant cells identified. Bone marrow evaluation was done on October 06, 2019 showed no clonal B-cell population or increased blast cells seen on flow cytometry and no involvement of B-cell lymphoma so in September 2019, he was started on high-dose methotrexate alternating with DHAP-R Which was started on October 15, 2019 and second cycle was given on November 16, 2019 and third cycle January 11, 2020 and after that patient again lost follow-up as per medical record had multiple no-shows for scanning and follow-up And follow-up CT scan of neck done on January 14, 2020 showed right-sided nasopharyngeal mass does not appear significantly from October 02, 2019 MRI scan of the brain done on January 13, 2020 showed response to therapy with resolution of previously seen enhancing nodule along the margins of lateral ventricles. Posterior fossa lesion along the margin of fourth ventricle has significantly decreased in size. There is a residual enhancing lesion measuring 13 mm and edema at this location has nearly resolved. No new intracranial lesion identified. Right-sided nasopharyngeal enhancing mass appears similar to the previous exam done in September 2019 ,Repeat CT scan of chest abdomen pelvis done on June 03, 2020 showed no pathologically enlarged thoracic lymph node #2 waxing and waning appearance of nodular opacities suggestive of atypical infection or inflammatory process. Development of extensive tree-in-bud opacities within the bilateral lungs component of chronic aspiration pneumonia is not excluded. Unchanged left adrenal nodule. Repeat CT scan of neck done on June 03, 2020 shows marked interval enlargement of previously demonstrated right nasopharyngeal mass lesion now approaches 8 cm in size with obstruction of nasopharyngeal airway and associated progressive postobstructive paranasal sinus patient was admitted to [facility] in [place] on June 08, 2020 with progressive discomfort in right side of face and Facial droop and numbness disease progression was confirmed with CT scan of the neck as per medical oncologist note patient could not go for treatment and follow-up because of noncompliance and transportation problemAnd now being transferred to [place] for further management. Mr Hernandez is here today for followup after a consult with Dr Pires in radiation oncology. Mr Hernandez and his family have requested and have been referred to [facility] for further assessment and establishment of a plan of care. He has no new concerns today. He continues to have pain but states it is controlled with his current prescription of hydrocodone. He continues to have facial drrop and speech difficulty but his family states it is no worse-no better but no worse either. His ECOG is 2-3 depending on the day and the task. Past Medical History: Depression Gastroesophageal reflux disease Post traumatic stress disorder Past Surgical History: [place] (dr. metzger) Allergies: No Known Allergies. Medications: Citalopram Hydrobromide 1 Tablet (of 40 mg) Oral daily PriLOSEC 1 Capsule (of 20 mg) Capsule Delayed Release Oral daily Prochlorperazine Maleate Tablet Oral PRN Family History: The family history is unremarkable. Social History: Mr. Hernandez is and he is unemployed. He is a daily smoker who has smoked 0.5 packs/day for 24 years. He has no history of drinking. He has indicated exposure to the following products: cigarettes. Review Of Symptoms: Constitutional Denies fevers, chills, night sweats, excessive fatigue or weight loss. Allergic/Immunologic No reactions. Eyes Denies significant visual changes. No diplopia. No amaurosis. ENMT Denies changes in hearing, sore throat, mouth sores, difficulty or changes in swallowing ability, and/or sinus drainage. Endocrine No diabetes, thyroid disease or hormone replacement. Denies hot flashes or night sweats. Hematologic/Lymphatic Denies easy bruising or bleeding. The patient denies any tender or palpable lymph nodes. Respiratory Denies dyspnea on exertion, chest pain, cough or hemoptysis. Denies orthopnea. Cardiovascular Denies anginal chest pain, palpitations or orthopnea. Gastrointestinal Denies nausea, vomiting, diarrhea, GI bleeding. Denies change in bowel habits and/or stool color, no heartburn or early satiety. Genitourinary (M) Denies hematuria, dysuria, increased frequency, urgency, hesitancy or incontinence. Musculoskeletal Denies joint pain, swelling or redness. No decreased range of motion. Integumentary Denies chronic rashes, inflammation, ulcerations or skin changes. Neurologic Denies headache, blurred vision, and no areas of focal weakness or numbness. Normal gait. No sensory problems. Psychiatric Denies insomnia, depression, billy or mood swings. Vital Signs: Performed on Jun 22, 2020 09:23 Height - 68.00 in Weight - 136.2 lbs Temperature - 98.4 F Pulse - 99 Respiration - 24 BP - 114/78 mm(hg) O2 Sat - 96 % Pain - 7 Performed on Jun 22, 2020 09:23 BMI - 20.709 kg/m2,2 - Ambulatory/capable of all self-care, unable to perform any work activities. Up and about more than 50% of waking hours. (ECOG) Physical Examination: Constitutional Alert, oriented, no acute distress. Skin pale/ pink, warm and dry. Head Normocephalic; atraumatic. Eyes Conjunctivae and sclerae are clear and without icterus. Pupils are reactive and equal. Hematologic/Lymphatic No petechiae or purpura. No tender or palpable lymph nodes in the cervical or supraclavicular areas. Respiratory Lungs are clear to auscultation without rhonchi or wheezing. Cardiovascular Regular rate and rhythm of heart without murmurs,clicks, gallops or rubs. Back/Spine Non-tender to palpation. Extremities No visible deformities, no cyanosis, clubbing or edema. Pulses 4+ and equal bilaterally. Musculoskeletal No tenderness or swelling, normal range of motion without obvious weakness. Integumentary No rashes or lesions. Neurologic No sensory or motor deficits, normal cerebellar function, normal gait. Psychiatric Alert and oriented times three. Coherent speech. Verbalizes understanding of our discussions today. Laboratory:Test performed on Jun 22, 2020 09:55 Sodium 132 mmol/L Potassium 4.2 mmol/L Chloride 94 mmol/L CO2 26 mmol/L Anion Gap 16.2 BUN 25 mg/dL Creatinine 0.7 mg/dL Cr Clearance (Est) 127.5900 mL/min eGFR 124.3 mL/min Glucose 98 mg/dL Osmolality - Calculated 278 mOsm/kg Calcium 10.0 mg/dL Protein, Total 7.1 g/dL Albumin 4.2 g/dL Globulin 2.9 g/dL Bilirubin, Total 0.6 mg/dL ALT (SGPT) 18 U/L AST (SGOT) 42 U/L Alkaline Phosphatase 144 IU/L WBC 14.8 10 3/uL RBC 4.37 10 6/uL HGB 12.6 g/dL HCT 37.2 % MCV 85.1 fL MCH 28.8 pg MCHC 33.9 g/dL RDW 14.3 % Platelet Count 460 10 3/cmm MPV 8.9 fL Neutrophils 14.27 10 3/uL Lymphocytes 0.3 10 3/uL Monocytes 0.1 10 3/uL Eosinophils 0.0 10 3/uL Basophils 0.0 10 3/uL Neutrophil % 96.8 % Lymphocyte % 2.0 % Monocyte % 0.8 % Eosinophil % 0.0 % Basophils % 0.1 % NRBC % 0 % Impression: Recurrent high-grade B-cell lymphoma involving the nasopharynx/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 While this findings may represent background tonsil architecture, the probability of an underlying follicular lymphoma cannot be entirely excluded Flow cytometry revealed monotypic B-cell population with a germinal center phenotype Immunohistochemistry showed CD20 positive B cells. CD3 highlights scattered admixed small T cells. B cells are positive for BCL 6 and BCL 2 bu negative for t cMYC . And negative for EB virus, Ki-67 reveals a proliferative index ranging from 60-90%. CT PET scan done on 06/26/2018 showed large FDG avid mass expanding the prevertebral soft tissue at the level of the nasopharynx displacing the airway anteriorly and compressing it with SUV of 14.96. There is an adjacent enlarged left palatine tonsil region with SUV of 14.95. There is an adjacent lymph node with SUV of 13.5 and a larger lymph node anterior to the left sternocleidomastoid muscle at the level of then will of mandible with SUV of 14.6. There is a node in the right parapharyngeal space with SUV of 12.95. There is an FDG avid mass lateral to the right submandibular gland with SUV of 6.01. Clinical stage II There is a small nodule lateral to the right hilum with SUV of 1.29. No significant FDG avid nodules are lymph node and yonatan or mediastinal. s/p 3 cycles of chemotherapy with R CHOP and CT PET scan. Was ordered and because of loss of Medicaid coverage he could not get that done and also never came back to office despite of repeated calls. patient is having progressive symptoms specific deep back pain or progressive right submandibular mass/lymphoma, insurance is still taking that time to approve PET scan, in that case we will proceed with CT scan of neck chest abdomen pelvis and also his repeat echocardiogram done on 03/25/2019 showed ejection fraction 68% in that case we we will proceed with R-CHOP, as patient responded very well in the past and plan to give him 3 cycles of this regimen followed by CT PET scan to assess response. Plan: Mr Hernandez has been referred to [facility] in [facility] for further care. His family reports he is supposed to be seen next week. He continues to have alot of throat pain and is having problems eating. His state he does get relief with hydrocodone. I will give him a 5 day supply and he should be being seen at [facility] by that time per his family's report. I have asked Jose Hernandez's family to let us know when his appointment actually is and then call us after he is seem @ [facility] so we can establish followup plan of care. They agree to this request and have also been encouraged to call us in the interim if questions or problems arise. Signed By: Marv Garza-, CNJeb Lopez MD <<Signature on File>>
== END 2020-06-22 05:57 | disposition home or self-care (01) ==
PROVIDERS: Absent Provider Radiology Radiation Oncology; PCP Family Medicine; Visit Provider Nurse Practitioner
DX: C83.39 Diffuse large B-cell lymphoma, extranodal and solid organ sites (principal); R07.0 Pain in throat; Z79.891 Long term (current) use of opiate analgesic; Z92.21 Personal history of antineoplastic chemotherapy
CPT/HCPCS: 36591; 80053; 85025; 99214

== ENCOUNTER 2020-06-28 15:06 | Emergency (ER) | payer MEDICAID, SELFPAY ==
[2020-06-28 15:11] VITALS: BP 108/68; PULSE 70; RESP 18; O2SAT 98; BMI 21.7
[2020-06-28 15:15] VITALS: BP 121/74; PULSE 93; RESP 20; O2SAT 100
--- NOTE | 2020-06-28 15:18 | ED_ITS ---
HPI - Wound/Laceration General: Chief Complaint: Wound/Laceration Stated Complaint: BLISTERS, THROAT SWELLING, DROOLING Time Seen by Provider: 06/28/20 15:13 Source: EMS Mode of arrival: EMS Limitations: language barrier History of Present Illness: HPI narrative: pt has hx of non hodgekins lymphoma and is being seen by Dr. Lopez, hospice was recommended. Pt presents today with blisters to mouth and throat with excessive drooling Review of Systems General: Reports: 10 or more systems reviewed and unremarkable except in HPI and below ENMT: Reports: throat pain, enlarged tonsils, odynophagia, mouth pain, swelling of lips/tongue, oral sores and bleeding gums PFSH ED PFSH: Medical History Anxiety and depression Social History Smoking and tobacco status: current some day smoker cigarettes Packs smoked per day: 1 Quit status (tobacco): not considering quitting Second hand smoke exposure: No Alcohol intake: never Caregiver/support person: Yes Lives independently: No History of recent travel: No Current gender identity: Male Physical Exam HENMT: TEETH & GINGIVA: Yes abnormal tooth and associated gingiva, Yes caries, Yes poor dentition and Yes teeth discoloration THROAT: tonsils normal OTHER: copious amounts of yellow and white exudate covering the surface of pt tongue, roof of mouth, and back of throat Course ED course: Pt presents by EMS with complaints of severe mouth pain. Pt was dx with terminal cancer and is being seen by Dr. Lopez. It appears his treatment options have been exhausted and palliative care has been brought up. Pt had not made a decision for hospice per his last oncology notes. We will do magic mouthwash and pain management. We will try to facilitate hospice care for the pt and will try to reach his oncologist for further direction. Reevaluation(s): Reevaluation #1: Spoke with Dr. Lopez, the pt has had a lot of issues with compliance and his chemotherapy despite his cancer being receptive to treatment. He is now going to go to [place] for high dose chemotherapy. Will dc with nystatin and pt to follow up with [place] as scheduled. Time: 16:16 Vital Signs: Vital signs: Vital Signs Pulse Rate 93 06/28/20 15:15 Respiratory Rate 18 02/09/21 16:04 Blood Pressure 121/74 06/28/20 15:15 Pulse Oximetry 100 06/28/20 15:15 Discharge Plan Discharge Patient Disposition: Home Clinical Impression: Thrush of mouth and esophagus Condition: Stable Prescriptions: New nystatin 100,000 unit/mL suspension 3 ml buccal QID 7 Days Qty: 84 RF: 0 No Action citalopram 40 mg tablet 40 mg PO DAILY@1600 RF: 0 omeprazole 20 mg capsule,delayed release(DR/EC) 20 mg PO DAILY@1600 PRN (Reason: unknown) RF: 0 ondansetron 4 mg tablet,disintegrating 4 mg PO Q6H PRN (Reason: nausea and vomiting) Qty: 14 RF: 0 hydrocodone-acetaminophen 5-325 mg tablet 1 tab PO Q4H PRN (Reason: Pain) RF: 0 pantoprazole 40 mg tablet,delayed release (DR/EC) 40 mg PO DAILY@1600 RF: 0 Discharge Orders: Discharge ED (Routine); Ordered 06/28/20 Ordered By: Brook Schmitt Referrals: Freeman Anderson, [Primary Care Provider] - Discharge Diet: Advance as tolerated Discharge Activity: Increase activity as tolerated Activity Restrictions/Additional Instructions: Follow up with [facility] as scheduled. Coding Level of Care Code ED [employer] Supervisor for Sarai Rodriguez Exam Problem Focused
--- NOTE | 2020-06-28 16:02 | PC.NURSE ---
Blisters in mouth due to cancer
[2020-06-28 16:04] VITALS: RESP 18
[2020-06-28] MEDS: morphine 4 mg/mL SDV 1 mL IVP (16:04)
[2020-06-28] MEDS: lidocaine 2% viscous 1.667 ML, diphenhydrAMINE oral liq 4.165 MG, aluminum-mag hydrox-s... MUCOUS MEM (16:06)
[2020-06-28] MEDS: nystatin 100,000 unit/mL UDC 5 mL 500000 UNIT PO (16:17)
[2020-06-28 16:39] VITALS: BP 118/70; PULSE 84; RESP 16; O2SAT 97
== END 2020-06-28 16:46 | disposition home or self-care (01) ==
PROVIDERS: Emergency Provider Nurse Practitioner Family; PCP Family Medicine
DX: B37.0 Candidal stomatitis (principal); B37.81 Candidal esophagitis; Z79.891 Long term (current) use of opiate analgesic; F17.210 Nicotine dependence, cigarettes, uncomplicated; C85.90 Non-Hodgkin lymphoma, unspecified, unspecified site
CPT/HCPCS: 12345; 96374; 99283; J2270

== ENCOUNTER 2020-07-06 13:45 | Emergency (ER) | payer MEDICAID, SELFPAY ==
[2020-07-06 13:57] VITALS: BP 117/92; PULSE 125; RESP 16; TEMP 37; O2SAT 97; BMI 19.8
--- NOTE | 2020-07-06 14:30 | CT_ITS ---
WS: [id number] CT FACIAL BONES with contrast. HISTORY: eye swelling and infection TECHNIQUE: Images obtained from the supraorbital location through the mandible. Soft tissue and bone windows are reviewed. Coronal and sagittal reformats have also been submitted. DLP: 774.[address] scans at [facility] use at least one of these dose optimization techniques: automat ed exposure control; mA and/or kV adjustment per patient size (includes targeted exams where dose is matched to clinical indication); or iterative reconstruction. COMPARISON: Neck CT 06/03/2020, MRI brain 06/08/2020 and 05/10/2020. There is a large soft tissue mass which is consistent with patient's known lymphoma centered in the n asopharynx, oral oropharynx and parapharyngeal region. This is greater to the RIGHT of midline. There is obliteration of the fat planes in near complete obstruction of the airway at the nasopharynx. Thi s soft tissue mass demonstrates some very mild enhancement and is distorting and displacing the adjac ent soft tissues in the musculature. Mass extends into the RIGHT nasal passage and into the RIGHT par apharyngeal soft tissues. There is abnormal enhancement and soft tissue in the RIGHT sphenoid sinus w ith destruction of the lateral RIGHT sphenoid sinus wall. Abnormal soft tissue enhancement in the tem poral lobes are greatest on the RIGHT. Very minimal soft tissue thickening over the RIGHT orbit and globe. No large focal abscess collection . No soft tissue enhancement in the globe. There is mild bulging of the medial wall of the RIGHT orbi t. There is bone destruction and expansion with destruction of the lamina papyracea. There is soft ti ssue contiguous between the RIGHT maxillary sinus and the nasal passage. There is mild mass effect up on the RIGHT medial rectus muscle. Extensive dental caries disease bilaterally. There is very mild enhancement on the postcontrast image s within the visualized included brain suggesting meningeal extension. There is also destruction of t he RIGHT foramen magnum and clivus. Soft tissue enhancement surrounding the RIGHT intracranial caroti d artery and at the skull base. CT/CT facial bones w con [id number] IMPRESSION: 1. Significant progression of the known expansile lesion of lymphoma centered in the RIGHT nasopharynx, oropharynx and parapharyngeal soft tissue. There is b one expansion and destruction as described above. 2. There is tumor extension and enhancement extending into the skull base and brain with meningeal carcinomatosis expected. These findings have progressed si nce the noncontrast MRI brain of 06/08/2020. 3. No orbital mass or abscess identified. Notified Michael Daniels DO at 07/06/2020 3:37 PM.
--- NOTE | 2020-07-06 14:33 | ED_ITS ---
HPI - Eye Problem General: Chief complaint: Eye Problems Stated complaint: SWOLLEN R EYE Time Seen by Provider: 07/06/20 13:59 History of Present Illness: HPI Narrative: 39-year-old male presents to the emergency room with chemosis of the lower half of this right eye. His caregiver thought he had a contact caught in it and try to manipulate the following day he got much more swollen. 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 chief complaint: eye pain and eye redness Onset (ago): day(s) Onset description: sudden Duration: constant and progressively worsening Location: right eye Eye Symptoms: burning, redness and discharge Place: home Mechanism: direct trauma (Manipulated eye attempted to remove a contact) Severity: moderate Context: contact lens use and trauma Associated symptoms: Reports rhinorrhea; Denies cough, fever(s), headache(s), nausea, neck pain, numbness, short of breath, vomiting or weakness Treatments Prior to Arrival: irrigated eye and removed contact lens Review of Systems Const: Denies: fever(s), chills, body aches, change in appetite, fatigue or malaise ENMT: Denies: throat pain, ear or mastoid pain, nasal discharge or nasal congestion Card: Denies: chest pain, edema, dyspnea on exertion or orthopnea Resp: Denies: dyspnea, productive cough or non-productive cough GI: Denies: nausea or vomiting : Denies: flank pain, dysuria, urinary frequency or urinary urgency Musc: Denies: neck pain Skin/Breast: Denies: rash or pruritus Neuro: Denies: headache(s) PFSH ED PFSH: Medical History (Updated 07/06/20 @ 16:19 by Michael Daniels DO) Anxiety and depression Non-Hodgkin lymphoma in remission Social History Smoking and tobacco status: current some day smoker cigarettes Packs smoked per day: 1 Quit status (tobacco): not considering quitting Second hand smoke exposure: No Alcohol intake: never Caregiver/support person: Yes Lives independently: No History of recent travel: No Current gender identity: Male Physical Exam Const: COMMON NORMALS: no acute distress GENERAL APPEARANCE: cooperative and comfortable HENMT: COMMON NORMALS: normocephalic HEAD & SCALP: normocephalic Eye: OTHER: Significant hemoecchymosis and swelling of the lower half of the right eye. There is some purulent drainage present is difficult for the patient to close his eye. Neck/C-Spine: COMMON NORMALS: no JVD Resp: COMMON NORMALS: normal respiratory effort, No retractions, No use of accessory muscles and clear to auscultation bilaterally AUSCULTATION: clear to auscultation bilaterally Cardio: COMMON NORMALS: no JVD, regular rate, regular rhythm and No murmurs present (Cardio) RATE: regular rate RHYTHM: regular rhythm GI: COMMON NORMALS: Soft to palpation and No hepatosplenomegaly present AUSCULTATION: Yes normoactive bowel sounds PALPATION: Yes Soft to palpation, No Tenderness to palpation present (GI), No Guarding due to palpation present (GI) and Yes No hepatosplenomegaly present Extremity: COMMON NORMALS: normal to inspection, capillary refill normal, no clubbing, cyanosis or edema, no calf tenderness and no pedal edema Skin: COMMON NORMALS: no rashes or lesions noted GENERAL SKIN EXAM: no rashes or lesions noted Course Vital Signs: Vital signs: Vital Signs Temperature 98.6 F 07/06/20 13:57 Pulse Rate 88 07/06/20 16:48 Respiratory Rate 18 07/06/20 16:48 Blood Pressure 120/88 07/06/20 16:48 Pulse Oximetry 97 07/06/20 16:48 MDM - Eye Problem MDM Narrative: Medical decision making narrative: Candido with Dr. Pires. He will see the patient tomorrow we will treat TI with saline gel to keep moist. Also use antibiotic steroid combination topically. Encourage him to wear a patch as well. Return if has problems. Lab Data: Labs: Lab Results 07/06/20 07/06/20 Range/Units 15:12 15:12 WBC 13.1 H (4.0-10.0) 10^3/ uL RBC 4.96 (4.1-5.3) 10^6/u L Hgb 14.3 (11.7-16.6) g/dL Hct 42.4 (42.0-52.0) % MCV 85.5 (80-94) fL MCH 28.8 (28.0-34.0) pg MCHC 33.7 (30.0-36.0) g/dL RDW 13.4 (12.1-15.1) % Plt Count 566 H (130-400) 10^3/c mm MPV 8.8 (7.4-10.4) fL Neut % (Auto) 86.5 % Lymph % (Auto) 6.4 % [place] % (Auto) 5.5 % Eos % (Auto) 0.7 % Baso % (Auto) 0.5 % Neut # (Auto) 11.29 H (1.8-7.7) 10^3/u L Lymph # (Auto) 0.8 (0.8-4.8) 10^3/u L [place] # (Auto) 0.7 (0.2-0.9) 10^3/u L Eos # (Auto) 0.1 (0.0-0.8) 10^3/u L Baso # (Auto) 0.1 (0.0-0.1) 10^3/u L Nucleated RBC % (a uto) 0 % Nucleated RBCs # 0.0 /100WBC Sodium 134 L (136-145) mmol/L Potassium 4.1 (3.5-5.1) mmol/L Chloride 93 L (98-107) mmol/L Carbon Dioxide 32 H (22-29) mmol/L Anion Gap 13.1 (5-19) BUN 17 (6-20) mg/dL Creatinine 0.6 L (0.7-1.2) mg/dL GFR Calculation 148.5 H (90-130) mL/min Glucose 88 (65-115) mg/dL Calculated Osmolal ity 279 L (285-295) mOsm/k g Calcium 10.4 (8.5-10.5) mg/dL Total Bilirubin 0.2 (0.15-1.2) mg/dL AST 9 (0-40) U/L ALT 13 (0-41) U/L Alkaline Phosphata se 141 H (40-130) IU/L Total Protein 7.2 (6.6-8.7) g/dL Albumin 3.8 (3.5-5.2) g/dL Globulin 3.4 (1.3-4.6) g/dL Discharge Plan Discharge Patient Disposition: Home Clinical Impression: Bacterial conjunctivitis, B-cell lymphoma, Chemosis of conjunctiva Condition: Stable Prescriptions: New Refresh Liquigel 1 % drops, liquid gel 1 drp ophthalmic (eye) DAILY PRN (Reason: dry eye(s)) Qty: 15 RF: 0 prednisolone sod ph-moxiflox 1-0.5 % drops 1 drp ophthalmic (eye) TID Qty: 5 RF: 0 No Action citalopram 40 mg tablet 40 mg PO DAILY@1600 RF: 0 omeprazole 20 mg capsule,delayed release(DR/EC) 20 mg PO DAILY@1600 PRN (Reason: unknown) RF: 0 ondansetron 4 mg tablet,disintegrating 4 mg PO Q6H PRN (Reason: nausea and vomiting) Qty: 14 RF: 0 hydrocodone-acetaminophen 5-325 mg tablet 1 tab PO Q4H PRN (Reason: Pain) RF: 0 pantoprazole 40 mg tablet,delayed release (DR/EC) 40 mg PO DAILY@1600 RF: 0 Discharge Orders: Discharge ED (Routine); Ordered 07/06/20 Ordered By: Michael Daniels Referrals: Freeman Anderson, [Primary Care Provider] - Discharge Diet: Usual diet Discharge Activity: Resume usual activity Patient Instructions: Opioid Safety Activity Restrictions/Additional Instructions: Will call to make an arrangement for you to see the survey director just tomorrow in his office. Use the antibiotic drops twice daily and the Refresh Liqui-Gel drops as needed for irritation. You should tape the eye shut and wear an eye patch until you see the eye doctor. Coding Level of Care Code ED Milking Worker for Sarai Fwd Exam Comprehensive
[2020-07-06] MEDS: iohexol 300 mg/mL 100 mL Btl IV (15:18)
[2020-07-06 15:28] LABS: Basophils # 0.1 10^3/uL (0.0-0.1); Basophils % 0.5 %; Eosinophils # 0.1 10^3/uL (0.0-0.8); Eosinophils % 0.7 %; Hematocrit 42.4 % (42.0-52.0); Hemoglobin 14.3 g/dL (11.7-16.6); Lymphocytes # 0.8 10^3/uL (0.8-4.8); Lymphocytes % 6.4 %; Mean Corpuscular HGB Conc 33.7 g/dL (30.0-36.0); Mean Corpuscular Hemoglobin 28.8 pg (28.0-34.0); Mean Corpuscular Volume 85.5 fL (80-94); Mean Platelet Volume 8.8 fL (7.4-10.4); Monocytes # 0.7 10^3/uL (0.2-0.9); Monocytes % 5.5 %; Neutrophils # 11.29 10^3/uL (1.8-7.7); Neutrophils % 86.5 %; Nucleated Red Blood Cells % 0 %; Platelet Count 566 10^3/cmm (130-400); Red Blood Count 4.96 10^6/uL (4.1-5.3); Red Cell Distribution Width 13.4 % (12.1-15.1); White Blood Count 13.1 10^3/uL (4.0-10.0)
[2020-07-06 15:52] LABS: Alanine Aminotransferase 13 U/L (0-41); Albumin Level 3.8 g/dL (3.5-5.2); Alkaline Phosphatase 141 IU/L (40-130); Anion Gap 13.1 (5-19); Aspartate Amino Transferase 9 U/L (0-40); Blood Urea Nitrogen 17 mg/dL (6-20); Calcium 10.4 mg/dL (8.5-10.5); Carbon Dioxide 32 mmol/L (22-29); Chloride 93 mmol/L (98-107); Globulin 3.4 g/dL (1.3-4.6); Glomerular Filtration Rate 148.5 mL/min (90-130); Glucose 88 mg/dL (65-115); Osmolality Calculated 279 mOsm/kg (285-295); Potassium 4.1 mmol/L (3.5-5.1); Sodium 134 mmol/L (136-145); Total Bilirubin 0.2 mg/dL (0.15-1.2); Total Protein 7.2 g/dL (6.6-8.7)
[2020-07-06] MEDS: tobramycin-dexametha Op Susp 5 mL Btl 2 DROP EYE-RIGHT (16:46)
[2020-07-06 16:48] VITALS: BP 120/88; PULSE 88; RESP 18; O2SAT 97
--- NOTE | 2020-07-06 16:52 | PC.NURSE ---
eye lid taped shut and covered with eye patch , medicine was applied prior to application
--- NOTE | 2020-07-08 11:17 | DCPLANNER ---
desktop support manager had message to schedule a follow up appointment for patient with Dr. Pires. desktop support manager faxed patients information to the office of Dr. Pires. desktop support manager called to confirm that clinic received patients information, case resolution specialist was told that clinic did received patients information. A follow up appointment will be scheduled and clinic will call patient with appointment information.
--- NOTE | 2020-07-20 15:24 | DCPLANNER ---
Patient has a follow up appointment scheduled for Sunday, July 26, 2020 at 8:[address] Pires office. Clinic will call patient with appointment information.
--- NOTE | 2020-08-05 13:57 | DCPLANNER ---
Patient had an appointment scheduled for with Dr. Pires - appointment was rescheduled.
== END 2020-07-06 16:57 | disposition home or self-care (01) ==
PROVIDERS: Emergency Provider Family Medicine; PCP Family Medicine
DX: H10.89 Other conjunctivitis (principal); H11.429 Conjunctival edema, unspecified eye; C85.10 Unspecified B-cell lymphoma, unspecified site; Z85.72 Personal history of non-Hodgkin lymphomas; F17.210 Nicotine dependence, cigarettes, uncomplicated
CPT/HCPCS: 70487; 80053; 85025; 99283; Q9967

== ENCOUNTER 2020-08-22 07:26 | Outpatient (CLI) | payer MEDICAID, SELFPAY ==
[2020-08-22 09:21] LABS: Basophils % 0.1 %; Eosinophils # 0.2 10^3/uL (0.0-0.8); Eosinophils % 1.3 %; Hematocrit 32.7 % (42.0-52.0); Hemoglobin 10.8 g/dL (11.7-16.6); Lymphocytes # 0.5 10^3/uL (0.8-4.8); Mean Corpuscular Hemoglobin 30.5 pg (28.0-34.0); Mean Corpuscular Volume 92.4 fL (80-94); Mean Platelet Volume 10.1 fL (7.4-10.4); Monocytes # 0.2 10^3/uL (0.2-0.9); Monocytes % 1.2 %; Neutrophils # 12.53 10^3/uL (1.8-7.7); Nucleated Red Blood Cells % 0 %; Platelet Count 325 10^3/cmm (130-400); Red Blood Count 3.54 10^6/uL (4.1-5.3); Red Cell Distribution Width 15.9 % (12.1-15.1); White Blood Count 15.2 10^3/uL (4.0-10.0)
[2020-08-22 09:32] LABS: Alanine Aminotransferase 16 U/L (0-41); Alkaline Phosphatase 114 IU/L (40-130); Anion Gap 14.7 (5-19); Aspartate Amino Transferase 5 U/L (0-40); Blood Urea Nitrogen 22 mg/dL (6-20); Calcium 8.8 mg/dL (8.5-10.5); Carbon Dioxide 27 mmol/L (22-29); Chloride 96 mmol/L (98-107); Globulin 1.8 g/dL (1.3-4.6); Glomerular Filtration Rate 237.1 mL/min (90-130); Glucose 108 mg/dL (65-115); Lactate Dehydrogenase 116 U/L (135-225); Osmolality Calculated 282 mOsm/kg (285-295); Potassium 3.7 mmol/L (3.5-5.1); Sodium 134 mmol/L (136-145); Total Bilirubin 0.3 mg/dL (0.15-1.2); Total Protein 5.8 g/dL (6.6-8.7)
[2020-08-22 10:10] LABS: Slide Review Slide Review Perform
[2020-08-22 10:12] LABS: Neutrophils % 94.4 %
== END 2020-08-22 07:27 | disposition home or self-care (01) ==
LOC: ONCMED 07:29
PROVIDERS: PCP Family Medicine; Visit Provider Internal Medicine Medical Oncology
DX: C83.38 Diffuse large B-cell lymphoma, lymph nodes of multiple sites (principal)
CPT/HCPCS: 36415; 36591; 80053; 83615; 85025

== ENCOUNTER 2020-09-20 23:33 | Inpatient (IN) | payer MEDICAID, SELFPAY ==
[2020-09-20 23:34] VITALS: BP 109/66; PULSE 85; RESP 24; TEMP 36.6; O2SAT 88; BMI 15.2
--- NOTE | 2020-09-20 23:36 | XRR_ITS ---
PROCEDURE INFORMATION: Exam: XR Chest Exam date and time: 09/20/2020 11:38 PM Age: 39 years old Clinical indication: Chest pain; Prior surgery; Surgery type: Port, trach; Additional info: Cp TECHNIQUE: Imaging protocol: XR of the chest. Views: 1 view. COMPARISON: CT chest abd pel w con* 10/01/2019 11:21 AM FINDINGS: Tubes, catheters and devices: Left chest tunnel Port-A-Cath terminates distal SVC. Airway: Tracheostomy in the midline. Lungs: Small areas of focal airspace opacification in the lateral right upper lobe and the infrahilar area of the right lower lobe. Several small pulmonary nodules in the right lung. Pleural spaces: Unremarkable. No pleural effusion. No pneumothorax. Heart/Mediastinum: Cardiac silhouette is normal in size. Bones/joints: Unremarkable. XR/XR chest 1V portable [id number] IMPRESSION: Multifocal airspace opacities of the right lung; multifocal bronchopneumonia is a consideration. Correlate with respiratory symptoms.
--- NOTE | 2020-09-20 23:39 | W.ED.GENADLT ---
HPI - General Adult General: Chief complaint: General Medical Stated complaint: TRACH ISSUES Time Seen by Provider: 09/20/20 23:34 Source: patient and EMS Mode of arrival: EMS Limitations: no limitations History of Present Illness: HPI narrative: 39-year-old male who has a history of non-Hodgkin's lymphoma and has had a tracheostomy. Family called EMS tonight because they felt like the trach was falling out and he had some increased secretions. Trach currently in place. He has had no known fevers. No dyspnea. Denies any worsening improving factors. No vomiting or diarrhea. Associated symptoms: Deny chest pain, dyspnea, headache(s), nausea, rash or vomiting Review of Systems Const: Denies: fever(s), chills, body aches or change in appetite Eyes: Denies: blurry vision or eye discomfort ENMT: Denies: throat pain or dental pain Card: Denies: chest pain Resp: Denies: dyspnea GI: Denies: abdominal pain, nausea, vomiting or diarrhea : Denies: dysuria Musc: Denies: neck pain or back pain Skin/Breast: Denies: rash Neuro: Denies: headache(s) Psych: Denies: depression Gordo/Lymph: Denies: easy bruising All/Imm: Denies: urticaria PFSH ED PFSH: Medical History (Updated 09/21/20 @ 01:21 by Michelle King MD) Anxiety and depression Non-Hodgkin lymphoma in remission Social History Smoking and tobacco status: current some day smoker cigarettes Packs smoked per day: 1 Quit status (tobacco): not considering quitting Second hand smoke exposure: No Alcohol intake: never Caregiver/support person: Yes Lives independently: No History of recent travel: No Current gender identity: Male Physical Exam Const: COMMON NORMALS: no acute distress, patient oriented x3 and healthy appearing HENMT: COMMON NORMALS: normocephalic and atraumatic HEAD & SCALP: normocephalic and atraumatic Eye: COMMON NORMALS: Equal, round and reactive pupils present and EOMs intact bilaterally PUPIL: Yes Equal, round and reactive pupils present Neck/C-Spine: COMMON NORMALS: full ROM and supple OTHER: trach in place with sight secretions Chest: COMMONS NORMALS: normal inspection of the chest and normal palpation of entire chest wall Resp: COMMON NORMALS: normal respiratory effort, No retractions, No use of accessory muscles and clear to auscultation bilaterally AUSCULTATION: clear to auscultation bilaterally Cardio: COMMON NORMALS: regular rate, regular rhythm and No murmurs present (Cardio) RATE: regular rate RHYTHM: regular rhythm GI: COMMON NORMALS: Normal to inspection, nondistended, normoactive bowel sounds present, Soft to palpation, non-tender and no masses PALPATION: Yes Soft to palpation Extremity: COMMON NORMALS: normal to inspection and full ROM Neuro: COMMON NORMALS: patient oriented x3, moves all extremities and no focal motor deficits Psych: COMMON NORMALS: mental status grossly normal, Normal thought process present and cooperative THOUGHT PROCESS: Normal thought process present Skin: COMMON NORMALS: no rashes or lesions noted and no wounds GENERAL SKIN EXAM: no rashes or lesions noted Course Vital Signs: Vital signs: Vital Signs Temperature 97.9 F 09/20/20 23:34 Pulse Rate 85 09/20/20 23:34 Respiratory Rate 24 H 09/20/20 23:34 Blood Pressure 109/66 09/20/20 23:34 Pulse Oximetry 88 L 09/20/20 23:34 MDM - General Adult MDM Narrative: Medical decision making narrative: Patient presents here with pneumonia likely causing his increased secretions from his tracheostomy. He does have an elevated white count no fever here. We will check blood cultures along with sputum culture. Patient started on IV antibiotics. I spoke to hospitalist who will admit. Lab Data: Labs: Lab Results 09/21/20 09/21/20 Range/Units 00:35 00:35 WBC 43.5 H* (4.0-10.0) 10^3/ uL RBC 2.54 L (4.1-5.3) 10^6/u L Hgb 7.6 L (11.7-16.6) g/dL Hct 23.2 L (42.0-52.0) % MCV 91.3 (80-94) fL MCH 29.9 (28.0-34.0) pg MCHC 32.8 (30.0-36.0) g/dL RDW 16.9 H (12.1-15.1) % Plt Count 396 (130-400) 10^3/c mm MPV 9.6 (7.4-10.4) fL Lymph % (Auto) Not Reportable [place] % (Auto) Not Reportable Lymph # (Auto) Not Reportable [place] # (Auto) Not Reportable Total Counted 100 (0-100) Atypical Lymphs % 0.0 (0-5) % Absolute Neutrophi ls 34.4 H (1.4-6.5) 10^3/c mm Segmented Neutroph ils 59 % Abs Segm Neuts (Ma n) 25.7 H (1.6-7.1) 10/cmm Band Neutrophils 20.0 % Abs Band Neuts (Ma n) 8.7 H (0.0-1.2) 10^3/c mm Absolute Lymphocyt es 0.9 L (1.2-3.4) 10^3/c mm Lymphocytes (Manua l) 2 % Monocytes (Manual) 9.0 % Absolute Monocytes 3.9 H (0.1-0.6) 10^3/c mm Eosinophils (Manua l) 0 % Absolute Eosinophi ls 0.0 (0.0-0.7) 10^3/c mm Basophils (Manual) 0.0 % Absolute Basophils 0.0 (0.0-0.2) 10^3/c mm Myelocytes 10.0 % Platelet Estimate Normal (Normal) Sodium 138 (136-145) mmol/L Potassium 2.9 L (3.5-5.1) mmol/L Chloride 99 (98-107) mmol/L Carbon Dioxide 29 (22-29) mmol/L Anion Gap 12.9 (5-19) BUN 19 (6-20) mg/dL Creatinine 0.6 L (0.7-1.2) mg/dL GFR Calculation 148.5 H (90-130) mL/min Glucose 117 H (65-115) mg/dL Calculated Osmolal ity 289 (285-295) mOsm/k g Calcium 8.9 (8.5-10.5) mg/dL Imaging Data^: CXR: Attestation: I personally reviewed and interpreted this imaging study as follows: My impression: right sided pneumonia Discharge Plan Discharge Patient Disposition: Admitted As Inpatient Clinical Impression: B-cell lymphoma Qualifiers: B-cell lymphoma type: unspecified B-cell Pneumonia Qualifiers: Pneumonia type: due to unspecified organism Laterality: right Lung location: unspecified part of lung Qualified Code(s): J18.9 - Pneumonia, unspecified organism Condition: Stable Coding Level of Care Code ED Spanish Language Lecturer for Chg Fwd Exam Comprehensive
[2020-09-21] VITALS (15 sets, daily range): BP systolic 96–105; BP diastolic 59–65; PULSE 58–88; RESP 16–20; TEMP 35.9–37.1; O2SAT 81–97
[2020-09-21 00:39] LABS: Hematocrit 23.2 % (42.0-52.0); Hemoglobin 7.6 g/dL (11.7-16.6); Mean Corpuscular HGB Conc 32.8 g/dL (30.0-36.0); Mean Corpuscular Hemoglobin 29.9 pg (28.0-34.0); Mean Corpuscular Volume 91.3 fL (80-94); Mean Platelet Volume 9.6 fL (7.4-10.4); Platelet Count 396 10^3/cmm (130-400); Red Blood Count 2.54 10^6/uL (4.1-5.3); Red Cell Distribution Width 16.9 % (12.1-15.1)
[2020-09-21 00:52] LABS: Anion Gap 12.9 (5-19); Blood Urea Nitrogen 19 mg/dL (6-20); Calcium 8.9 mg/dL (8.5-10.5); Carbon Dioxide 29 mmol/L (22-29); Chloride 99 mmol/L (98-107); Glomerular Filtration Rate 148.5 mL/min (90-130); Glucose 117 mg/dL (65-115); Osmolality Calculated 289 mOsm/kg (285-295); Sodium 138 mmol/L (136-145)
[2020-09-21 01:00] LABS: Potassium 2.9 mmol/L (3.5-5.1)
[2020-09-21 01:06] LABS: White Blood Count 43.5 10^3/uL (4.0-10.0)
[2020-09-21 01:07] LABS: Absolute Segmented Neutrophil 25.7 10/cmm (1.6-7.1); Band Neutrophils Absolute 8.7 10^3/cmm (0.0-1.2); Segmented Neutrophils 59 %; Total Cells Counted 100 (0-100)
[2020-09-21 01:08] LABS: Absolute Neutrophil 34.4 10^3/cmm (1.4-6.5); Eosinophils 0 %; Lymphocytes 2 %; Lymphocytes Absolute 0.9 10^3/cmm (1.2-3.4); Monocytes Absolute 3.9 10^3/cmm (0.1-0.6); Platelet Estimate Normal (Normal)
--- NOTE | 2020-09-21 01:30 | P.HP_ITS ---
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 Lopez discussed hospice and palliative radiotherapy due to chemo resistant cancer and brain metastases, however patient has not made a decision, wanted to pursue further treatment hence was referred to [facility], coming in today with chief complaint of increased secretions from his tracheostomy tube. Patient is denying chest pain, vomiting, endorsing shortness of breath and increased secretions. He mostly nods to my questions not able to speak much. There is no number listed for his however when number was called it was his mom's. Apparently there has been some dispute in the family and recently Mr. Hernandez has moved out with his . His is not accompanying him today and we are not able to get in touch with her. On arrival patient was in unkept appearance, lot of thick yellow mucoid secretions noted around tracheostomy tube, when I entered the room respiratory therapist was cleaning the inner cannula with normal saline, there was a lot of mucoid secretions noted as well at that time, he also has some pressure ulcer around his tracheostomy site, his trach is secured with a dirty string of cloth. CBC showing sepsis, leukocytosis, bandemia, he is afebrile, saturating well on room air, hypokalemia noted, He has uncuffed trach tube size 5 Chest x-ray showing multifocal pneumonia on right side, patient is stating that he is able to chew food, his PEG tube was removed, mom told us that he has been going to [facility] for chemotherapy. Review of Systems Const: Reports: chills, body aches, change in appetite, change in weight, fatigue and malaise; Denies: fever(s) Eyes: Reports: increased production of tears (Yellow crusting around right eyelid, chemosis of left eyelid); Denies: eye redness ENMT: Reports: throat pain, oral sores, bleeding gums and dry mouth Card: Denies: chest pain Resp: Reports: dyspnea and productive cough GI: Reports: abdominal pain; Denies: nausea or vomiting : Denies: flank pain Musc: Denies: extremity swelling Skin/Breast: Reports: lesions Neuro: Reports: difficulty walking Psych: Reports: anxiety and depression Endo: Denies: polyuria Gordo/Lymph: Denies: easy bruising All/Imm: Denies: urticaria Medications/Allergies Home Medications Medication Instructions Recorded Confirmed Last Taken Type citalopram 40 mg tablet 40 mg PO DAILY@1600 09/15/19 07/06/20 06/27/20 History omeprazole 20 mg PO DAILY@1600 PRN 09/15/19 07/06/20 06/27/20 History ondansetron 4 mg PO Q6H PRN #14 tab 09/15/19 07/06/20 09/30/19 Rx hydrocodone-acetaminophen 1 tab PO Q4H PRN 06/28/20 07/06/20 06/27/20 History pantoprazole 40 mg PO DAILY@1600 06/28/20 07/06/20 Unknown History carboxymethylcellulose sodium 1 drp OPHTHALMIC (EYE) DAILY PRN 07/06/20 Unknown Rx [Refresh Liquigel] #15 ml prednisolone sod ph-moxiflox 1 drp OPHTHALMIC (EYE) TID #5 ml 07/06/20 Unknown Rx Allergies Allergy/AdvReac Type Severity Reaction Status Date / Time No Known Allergies Allergy Verified 07/06/20 14:02 PFSH Acute PFSH: Medical History Anxiety and depression Cerebellar mass Non-Hodgkin lymphoma in remission Sleep apnea Submandibular gland mass Tracheostomy in place Surgical History Tracheostomy status Family History Other Family history non-contributory Social History Smoking and tobacco status: current some day smoker cigarettes Packs smoked per day: 1 Quit status (tobacco): not considering quitting Second hand smoke exposure: No Alcohol intake: never Caregiver/support person: Yes Lives independently: No History of recent travel: No Current gender identity: Male Vitals/I&O/Wt Last Vital Signs Temp 97.9 F 09/20/20 23:34 Pulse 85 09/20/20 23:34 Resp 24 H 09/20/20 23:34 BP 109/66 09/20/20 23:34 Pulse Ox 88 L 09/20/20 23:34 Weight last 48 hrs Weight 45.359 kg Physical Exam Narrative: EXAM NARRATIVE: Young male who appears more than his stated age, malnourished, protein calorie malnourishment, unkept appearance, Crusting of right eye with chemosis of left eyelid Thick yellow mucoid secretions around tracheostomy site with pressure ulcers around tracheostomy tube, Unkept appearance, tracheostomy tube is secured with a dirty string of cloth PEG tube insertion site no active bleeding, abdomen flat, scaphoid Lower extremity no edema gangrene ulcer, able to move all of his extremities Poor dental hygiene Prominent hair loss Malnourished, protein calorie malnourishment muscle mass loss, sarcopenia Able to understand my questions and answer with his head nodding in yes and no Neuro exam limited however able to move all of his extremities Is not able to completely open his right eye Data : 09/21/20 00:35 09/21/20 00:35 A&P Assessment and plan (1) Pneumonia: Status: Acute Qualifiers: Laterality: right Lung location: unspecified part of lung Pneumonia type: due to unspecified organism Qualified Code(s): J18.9 - Pneumonia, unspecified organism (2) Hypokalemia: Status: Acute (3) B-cell lymphoma: Status: Acute Qualifiers: B-cell lymphoma type: unspecified B-cell (4) Sepsis: Status: Acute Additional A&P Information Sepsis due to suspected bacterial community-acquired pneumonia Thick yellow mucoid secretions noted from tracheostomy tube Sample sent from the ER He is getting chemo at [facility] I will treat him with vancomycin and Zosyn considering immunocompromised state, my suspicion is high for pseudomonal and Klebsiella pneumonia Sepsis criteria met with tachypnea, leukocytosis, bandemia, blood culture, sputum culture urine antigen requested DuoNeb every 4 along Mucomyst He has uncuffed trach tube size 5, currently saturating well on room air, Dr. Rivas is also origination specialist if needed, will try to clean his tracheostomy tube with normal saline, I do believe it needs to be changed however at 2 AM I would like to avoid changing his tracheostomy tube considering the fact we do not have the same size, as per respiratory service they carry size 6, will try to get in touch with his to see if we can transfer him to [facility] however we were not able to get in touch with her, and recently because of his family dispute he moved out of his mom's home, he does have tough social dynamics which need to be addressed in the morning Hypokalemia: Patient is denying vomiting, I am suspecting this is secondary to poor p.o. intake and use of Protonix Potassium repleted Check magnesium level High-grade B-cell lymphoma with metastases to brain Resistant to chemo currently going to [facility] for high-dose chemotherapy Cerebellar metastases He had facial paralysis secondary to facial nerve compression due to mass, he has partial closure of right eye, noticed yellow crusting as well around right eye Continue ophthalmic drops Acute on chronic normocytic anemia: No active bleeding, Check stool occult blood test Avoid anticoagulation for DVT ppx Goals of care discussed with the patient he does not want any chest compressions or intubation, Dr. Lopez recommended palliative radiotherapy with hospice care, patient has not made a decision yet We will keep him n.p.o. for now DVT prophylaxis contraindicated because of drop of hemoglobin, I would use SCDs for now, check stool occult blood test Attestations Medical Necessity Statement*: anticipating stay in the hospital to cross more than than 2 midnights for sepsis, pneumonia, immunocompromise state, high risk for mortality and morbidity Time Spent in Patient Care: (>than 50% of time spent in counselling and/or direct pt care on unit) . 40mins Coding Level of Care Code Acute Dietetic Technician Registered for Archieg Fwd Diagnoses Pneumonia J18.9 Laterality: right Lung location: unspecified part of lung Pneumonia type: due to unspecified organism Hypokalemia E87.6 B-cell lymphoma C85.10 B-cell lymphoma type: unspecified B-cell Sepsis A41.9
[2020-09-21 01:56] LABS: Lactate (Lactic Acid level) 1.3 mmol/L (0.5-2.2)
[2020-09-21] MEDS: piperacillin-tazobactam 3.375 GM in sodium chloride 0.9% (plus) 50 ML IV ×3 (02:30→18:13)
[2020-09-21 02:44] LABS: Magnesium 1.9 mg/dL (1.7-2.3)
[2020-09-21 04:03] LABS: Vitamin B12 > 2000 pg/mL (232-1245)
--- NOTE | 2020-09-21 04:03 | PC.PHAR ---
Pharmacokinetic dosing service Date: 09/21/20 Time: 1600 Objective: Patient: Giovany Hernandez Floor: 266[address]1 Age: 39 yo Serum creatinine: 0.6 mg/dL Height: 68.0 Inches Weight (kg): 45.359 Diagnosis: Relevant medical/social history: Cultures and sensitivities: Other labs: Assessment: IBW (kg): 68.40 Dosing wt(kg): 45.359 Estimated Creatinine clearance (ml/min): 103.9 CRCL method: Cockcroft and Gault using ibw(default). Drug selected: Vancomycin Loading dose (mg): 0 Vd (liters): 40.8 (factor used: 0.9 L/kg) Lawrence (hr-1): 0.091 Half life (hrs): 7.62 Recommended dose: 1000 mg Interval: 12 hrs Infusion time (hrs): 1.5 Predicted peak (mcg/mL): 34.5 Predicted trough (mcg/mL): 13.27 Total body weight is being used for vancomycin dosing. Renal function is stable [ ] /unstable [ ] Recommendations: Give Vancomycin 1000 mg q 12 hrs with an expected Cpeak of 34.5 mcg/ml and an expected Ctrough of 13.27 mcg/ml Renal dosing of other antibiotics (review renal dosing of other medications and list guidelines here): Thank you for the consult, will continue to follow. Signature: Claudia Grady [facility]
[2020-09-21] MEDS: dextrose 5%-ns + KCl 40 40 MEQ/1,000 ML BAG 30 MEQ IV (04:17)
[2020-09-21] MEDS: pantoprazole 40 mg SDV IVP ×2 (04:18→15:49)
[2020-09-21] MEDS: lidocaine 1% 5 ML in potassium chloride premix 100 ML 25 ML IV (04:19)
[2020-09-21] MEDS: vancomycin 1,000 MG in sodium chloride 0.9% 250 ML 250 MG IV ×2 (04:20→16:49)
[2020-09-21] MEDS: HYDROcodone-acetaminophen 5-325 mg Tablet 1 TAB PO (05:00)
--- NOTE | 2020-09-21 07:18 | PC.NURSE ---
Med Surg Arrival; Pt arrived to med surg 267-1 this AM via gurney, accompanied by ED staff X2. On room air, with trach uncuffed and producing a lot of thick zepeda/yellow secretions noted. Patient is nonverbal, but will answer questions with appropriate head nods as indicated. Various bruising noted to bilateral arms, and lower legs. Right eye is able to be opened partially for observation, but remains 50% shut at all times. Left lower abdomen has a large area of redness with green/yellow drainage coming from peg tube removal site. RN cleaned and redressed site as indicated. Pt was able to sip on some fluids in order to swallow PO medications when asked. Bedside report given to dayshift RN. No further needs at this.
[2020-09-21] MEDS: acetylcysteine 200 mg/mL SDV 4 mL 100 MG INHALATION ×3 (08:01→20:50)
[2020-09-21] MEDS: ipratropium-albuterol 3 mL Neb INHALATION ×4 (08:01→20:50)
--- NOTE | 2020-09-21 09:18 | PC.PHAR ---
pt unable to verify medications-pts yfn states she sent in some medication bottles with the pt -bottles sent in were augmentin dated 07/11/20,fluconazolw 200mg 2 tabs daily dated 08/19/20 09/08/20 and pantoprazole 40mg daily dated 06/16/20-pts also states the pt gets some medications from [facility]-medications entered are meds the pt brought in and what [facility] has filled recently-notes are made in pharmacy comments of each rx explaining when meds were filled
[2020-09-21 13:05] LABS: Hematocrit 21.2 % (42.0-52.0); Hemoglobin 6.9 g/dL (11.7-16.6); Mean Corpuscular HGB Conc 32.5 g/dL (30.0-36.0); Mean Corpuscular Hemoglobin 30.5 pg (28.0-34.0); Mean Corpuscular Volume 93.8 fL (80-94); Mean Platelet Volume 9.7 fL (7.4-10.4); Platelet Count 400 10^3/cmm (130-400); Red Blood Count 2.26 10^6/uL (4.1-5.3); Red Cell Distribution Width 17.7 % (12.1-15.1)
--- NOTE | 2020-09-21 13:17 | CT_ITS ---
WS: [id number] CT CHEST TECHNIQUE: Noncontrast CT of the chest with coronal and sagittal reformatted images. CLINICAL INFORMATION: copd/pna COMPARISON: CT chest October 01, 2019 prior PET CTs June 2019 April 11, 2019 DLP: 469.[address] scans at [facility] use at least one of these dose optimization techniques: automat ed exposure control; mA and/or kV adjustment per patient size (includes targeted exams where dose is matched to clinical indication); or iterative reconstruction. FINDINGS: Mild chronic emphysematous changes. Tracheostomy. Small right pleural effusion with patchy infiltrate s consistent with pneumonia in the right lower lobe. New prominent masslike right hilar lymphadenopat hy has developed since the prior examination. 1.5 x 1.9 CM. Right infrahilar lymphadenopathy. Patchy infiltrates in right upper lobe with partial consolidation. Largest opacity measures 4.1 x 3.1 cm with surrounding hazy infiltrates. Hazy groundglass opacity in the right upper lobe measuring 6 m m. Micronodular infiltrates in the inferior segment right upper lobe and right lower lobe with inters titial thickening. Left lung is well aerated. No acute pulmonary infiltrates in the left lung. Slight dependent atelecta sis in the left lower lobe. Small amount of subpleural nodularity left lung laterally. No axillary lymphadenopathy. Left adrenal lesion likely adenoma measuring 1.8 cm is stable. Low-atten uation lesion in the dome the liver measuring 2.1 x 2.1 cm is new from October 01, 2019 suspicious for me tastatic disease. This is adjacent to the falciform ligament. CT/CT chest wo con [id number] IMPRESSION: 1. Small right pleural effusion with patchy infiltrates in the right lower lob e suspicious for pneumonia. 2. Patchy subtotal consolidation right upper lobe laterally described above wi th hazy surrounding groundglass infiltrates. In addition prominent right hilar masslike lymphadenopathy with bronchovascular thickening. 3. Interstitial thickening with micronodular infiltrates in the inferior segme nt right upper lobe and right lower lobe. 4. Above constellation of findings likely in part due to pneumonia, however ri ght hilar masslike lymphadenopathy and right upper lobe masslike consolidation suspicious for metastatic disease. 5. 5 mm groundglass opacity right upper lobe. 6. Recommend interval follow-up after antibiotic therapy. 7. In addition low-attenuation lesion in the dome of the liver measuring 2.1 c m is new since October 01, 2019 suspicious for metastatic disease. This can be furt her evaluated with ultrasound or contrast-enhanced CT abdomen pelvis with liver protocol.
--- NOTE | 2020-09-21 13:23 | CT_ITS ---
WS: [id number] CT HEAD TECHNIQUE: Noncontrast and contrast-enhanced CT of the head. CLINICAL INFORMATION: cerebral mets COMPARISON: MRI head June 08, 2020 DLP: 1201.[address] scans at [facility] use at least one of these dose optimization techniques: automat ed exposure control; mA and/or kV adjustment per patient size (includes targeted exams where dose is matched to clinical indication); or iterative reconstruction. 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 Involvement of the right petrous ap ex and skull base extending into the clivus and sphenoid sinus. This is similar in appearance to prev ious. Partial opacification right ethmoid air cells and sphenoid sinus. Opacification of the right ma stoid air cells. No evidence of intracranial hemorrhage or mass effect. No hydrocephalus. No transependymal edema. Rig ht ICA appears patent at the skull base. Patent right petrous and cavernous segments. Normal optic ch iasm and pituitary infundibulum. Previously described metastatic involvement involving the right midd le cranial fossa appears improved today. Presumed meningeal involvement of the right skull base and a nterior temporal lobe although no evidence of progressed disease. No visualized edema. CT/CT head wo/w con [id number] IMPRESSION: 1. No evidence of intracranial hemorrhage or mass effect. No hydrocephalus. 2. No evidence of progressed intracranial disease. 3. Previously described metastatic involvement involving the right inferior an d medial temporal lobe with dural thickening appears improved today. No signifi cant intracranial edema or mass effect. 4. Interval improvement in the posterior nasopharynx lymphoma mass with stable erosive changes involving the right petrous apex and skull base as described o n the face CT. 5. Opacification right mastoid air cells with partial opacification paranasal sinuses.
[2020-09-21 13:24] LABS: Anion Gap 10.3 (5-19); Blood Urea Nitrogen 17 mg/dL (6-20); Calcium 8.5 mg/dL (8.5-10.5); Carbon Dioxide 29 mmol/L (22-29); Chloride 106 mmol/L (98-107); Glomerular Filtration Rate 82.3 mL/min (90-130); Glucose 105 mg/dL (65-115); Osmolality Calculated 296 mOsm/kg (285-295); Potassium 3.3 mmol/L (3.5-5.1); Sodium 142 mmol/L (136-145)
--- NOTE | 2020-09-21 13:32 | CT_ITS ---
WS: [id number] CT FACIAL BONES TECHNIQUE: Noncontrast facial bones with coronal and sagittal reformatted images. CLINICAL INFORMATION: lymphoma COMPARISON: July 06, 2020 DLP: 1407.[address] scans at [facility] use at least one of these dose optimization techniques: automat ed exposure control; mA and/or kV adjustment per patient size (includes targeted exams where dose is matched to clinical indication); or iterative reconstruction. FINDINGS: Previously described soft tissue mass consistent with patient's known lymphoma in the nasopharynx has improved since the prior examination consistent with interval response to therapy. Mild residual sof t tissue thickening in the right posterior lateral pharyngeal recess at the fossa of Rosenmuller. Sof t tissue thickening in this area measures 1.6 x 2.2 CM. Left pharyngeal recess is normal. Partial eff acement of the right parapharyngeal fat. Overall findings are significantly improved compared to prev ious. Parotid glands are normal in appearance. Partially visualized submandibular glands. Again seen are er osive changes involving the skull base and right petrous apex. This extends to the clivus. Stable ero sive changes right sphenoid sinus and lamina papyracea. This is similar to the prior examination. M ucosal thickening with partial opacification of the right ethmoid air cells and sphenoid sinus consis tent with sinusitis. Screws with opacification of the right mastoid air cells. Left mastoid air cells well aerated. CT/CT facial bones wo con* [id number] IMPRESSION: 1. Significant interval improvement in the posterior nasopharynx lymphoma cons istent with interval response to therapy. 2. Small amount of soft tissue thickening in the right posterior lateral phary ngeal recess measuring 2.2 x 1.6 CM. This can be further evaluated with PET/CT. 3. Previously described erosive bony changes involving the right skull base, p etrous apex, and clivus as well as the right lamina papyracea and sphenoid sinu s are similar in appearance. 4. Partial opacification paranasal sinuses consistent with sinusitis. Opacific ation right mastoid air cells.
--- NOTE | 2020-09-21 13:32 | CT_ITS ---
WS: [id number] CT NECK TECHNIQUE: Noncontrast CT of the neck with coronal and sagittal reformatted images. CLINICAL INFORMATION: lymphoma follow up COMPARISON: CT neck June 03, 2020 DLP: 477.[address] scans at [facility] use at least one of these dose optimization techniques: automat ed exposure control; mA and/or kV adjustment per patient size (includes targeted exams where dose is matched to clinical indication); or iterative reconstruction. FINDINGS: Interval improvement in the posterior nasopharynx lymphoma mass with residual soft tissue thickening in the posterior lateral pharyngeal recess as described on the face CT. This measures 2.2 x 1.6 CM. P artial effacement of the right parapharyngeal fat. Minimal mass effect on the posterior oropharynx. N o airway narrowing. Normal left parapharyngeal fat. Stable erosive changes involving the right skull base and petrous apex extending to the clivus and sp henoid sinus described on the face CT. Opacification right mastoid air cells. Involvement of the righ t middle cranial fossa described on the head CT. Parotid glands are normal. Normal submandibular glands. Calcified right submandibular lymph node is u nchanged since July 06, 2020. No evidence of supraglottic or glottic mass. Medial deviation of th e right vocal cord suspicious for right vocal cord paralysis. This is unchanged since June 03 1. Rotation of the right arytenoid cartilage. No evidence of glottic or infraglottic mass. Tracheosto my. Partial opacification of the paranasal sinuses. Lung apices are well aerated. CT/CT neck wo con [id number] IMPRESSION: 1. No cervical lymphadenopathy. No evidence of progressed disease in the neck. 2. Interval improvement in the posterior nasopharynx lymphoma mass with residu al soft tissue thickening in the posterior lateral pharyngeal recess described above. 3. Stable bony involvement of the right petrous apex extending to the skull ba se and clivus. Extension to the right sphenoid sinus and right middle cranial f ciara as described on the face and head CT. 4. Medial deviation of the right vocal cord suspicious for focal cord paralysi s unchanged. 5. Prior tracheostomy. 6. No other significant changes.
--- NOTE | 2020-09-21 13:43 | P.PN_ITS ---
Subjective Subjective: Interval history: hosea- [id number], [id number] Vitals/I&O/Wt Last Vital Signs Temp 98.3 F 09/21/20 11:53 Pulse 74 09/21/20 11:53 Resp 17 09/21/20 11:53 BP 96/60 09/21/20 11:53 Pulse Ox 95 09/21/20 11:53 09/20/20 09/21/20 09/21/20 22:59 06:59 14:59 Intake Total 300 / 300 105 / 105 Output Total 0 / 0 0 / 0 Balance 300 / 300 105 / 105 Weight last 48 hrs Weight 45.359 kg Data : 09/21/20 00:35 09/21/20 12:50 Micro: Microbiology 09/21/20 01:23 Blood Culture - Preliminary Blood SPECIMEN COLLECTED 09/21/20 01:21 Blood Culture - Preliminary Blood SPECIMEN COLLECTED A&P Assessment and plan (1) Pneumonia: Status: Acute Qualifiers: Laterality: right Lung location: unspecified part of lung Pneumonia type: due to unspecified organism Qualified Code(s): J18.9 - Pneumonia, unspecified organism (2) Hypokalemia: Status: Acute (3) B-cell lymphoma: Status: Acute Qualifiers: B-cell lymphoma type: unspecified B-cell (4) Sepsis: Status: Acute Additional A&P Information Sepsis due to suspected bacterial community-acquired pneumonia Thick yellow mucoid secretions noted from tracheostomy tube Sample sent from the ER He is getting chemo at [facility] I will treat him with vancomycin and Zosyn considering immunocompromised state, my suspicion is high for pseudomonal and Klebsiella pneumonia Sepsis criteria met with tachypnea, leukocytosis, bandemia, blood culture, sputum culture urine antigen requested DuoNeb every 4 along Mucomyst He has uncuffed trach tube size 5, currently saturating well on room air, 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, will try to clean his tracheostomy tube with normal saline, I do believe it needs to be changed however at 2 AM I would like to avoid changing his tracheostomy tube considering the fact we do not have the same size, as per respiratory service they carry size 6, will try to get in touch with his to see if we can transfer him to [facility] however we were not able to get in touch with her, and recently because of his family dispute he moved out of his mom's home, he does have tough social dynamics which need to be addressed in the morning Hypokalemia: Patient is denying vomiting, I am suspecting this is secondary to poor p.o. 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 Lopez recommended palliative radiotherapy with hospice care, patient has not made a decision yet We will keep him n.p.o. 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
[2020-09-21] MEDS: iohexol 300 mg/mL 100 mL Btl IV (13:59)
[2020-09-21 14:00] LABS: NT Pro B Type Natriuretic Pept 1200 pg/mL (0-125); Procalcitonin 0.42 ng/mL (0-0.5)
[2020-09-21 14:11] LABS: Iron 33 ug/dL (59-158); Percent Saturation 21.8 % (20-50); Total Iron Binding Capacity 151 mcg/dl; Unsaturated Iron Binding 118 ug/dL (112-347)
[2020-09-21 14:33] LABS: Ferritin 3117 ng/mL (30-400)
[2020-09-21 14:40] LABS: White Blood Count 38.1 10^3/uL (4.0-10.0)
[2020-09-21 14:41] LABS: Slide Review Slide Review Perform
[2020-09-21 15:40] LABS: Add Urine Microscopic? YES; Bilirubin Urine Neg (Negative); Blood Urine Neg (Negative); Glucose Urine UA Norm (Normal); Ketones Urine 1+ (Negative); Leukocyte Esterase Urine Negative (Negative); Nitrate Urine Negative (Negative); Protein Urine 1+ (Negative); Specific Gravity, Urine 1.005 (1.005-1.030); Urine Appearance Clear (CLEAR); Urine Color Yellow (Yellow); Urobilinogen Urine Norm (Negative); pH Urine 5 (5-7)
[2020-09-21 15:42] LABS: Add Urine Culture? No; Bacteria Urine TRACE /hpf; RBC Urine RARE /hpf (0-2)
[2020-09-21] MEDS: iron sucrose 200 MG in sodium chloride 0.9% (100 ml) 100 ML 220 MG IV (15:45)
[2020-09-21 15:51] LABS: Potassium, Radom Urine 13 mmol/L
[2020-09-21 15:52] LABS: Urine Random Chloride 11 mmol/L; Urine Random Sodium 10 mmol/L
[2020-09-21 16:29] LABS: SARS Covid-2 Antigen Negative (Negative)
--- NOTE | 2020-09-21 16:44 | PM.TDS ---
Transfer Summary Providers Date of Admission: 09/21/20 03:33 Date of Discharge: 09/21/20 Attending Provider at Admission: Karissa Carey MD Attending Provider at Transfer: Demetris Nettles MD Primary Care Provider: Freeman Anderson DO Anticipated Date of Transfer: Anticipated date of transfer: 09/21/20 Receiving Facility & Provider: Receiving Provider: [Dr. Wilkinson] Receiving facility: [[facility]] Diagnoses at Discharge Discharge Diagnosis (1) Pneumonia: Status: Acute Qualifiers: Laterality: right Lung location: unspecified part of lung Pneumonia type: due to unspecified organism Qualified Code(s): J18.9 - Pneumonia, unspecified organism (2) Hypokalemia: Status: Acute (3) B-cell lymphoma: Status: Acute Qualifiers: B-cell lymphoma type: unspecified B-cell (4) Sepsis: Status: Acute (5) Tracheostomy in place: Status: Acute (6) Cerebellar mass: Status: Acute (7) Metastasis: Status: Acute Reason for Visit Reason for Visit: TRACH NOT TIGHT Hospital Course Hospital Course Giovany Hernandez is a 39 year old male carries 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 Lopez discussed hospice and palliative radiotherapy due to chemo resistant cancer and brain metastases, however patient has not made a decision, wanted to pursue further treatment hence was referred to [facility], coming in today with chief complaint of increased secretions from his tracheostomy tube. Patient is denying chest pain, vomiting, endorsing shortness of breath and increased secretions. He mostly nods to my questions not able to speak much. There is no number listed for his however when number was called it was his mom's. Apparently there has been some dispute in the family and recently Mr. Hernandez has moved out with his . His is not accompanying him today and we are not able to get in touch with her. On arrival patient was in unkept appearance, lot of thick yellow mucoid secretions noted around tracheostomy tube, when I entered the room respiratory therapist was cleaning the inner cannula with normal saline, there was a lot of mucoid secretions noted as well at that time, he also has some pressure ulcer around his tracheostomy site, his trach is secured with a dirty string of cloth. CBC showing sepsis, leukocytosis, bandemia, he is afebrile, saturating well on room air, hypokalemia noted, He has uncuffed trach tube size 5. Chest x-ray showing multifocal pneumonia on right side, patient is stating that he is able to chew food, his PEG tube was removed, mom told us that he has been going to [facility] for chemotherapy. Resolved hospital for management of multifocal right-sided pneumonia. COVID-19 rapid antigen was negative. Patient started on broad-spectrum antibiotics. He remained hemodynamically stable and was saturating well on room air for most part of the time other than occasional episodes of desaturation down to mid 80s which would improve after suctioning of tracheostomy. On further talks with patient's over the phone who is his primary caregiver she states they recently moved out of his mother's house and since then she has been taking care of his tracheostomy without complete equipments. The last 2 days he has been becoming more lethargic and has been having more secretions for 24 hours through the tracheostomy tube. She also states he has been getting chemotherapy in addition therapy at [facility] and was discharged a week ago. He was admitted to the hospital every other week for last 2 months over there. He also got tracheostomy placed at [facility]. She has been cleaning the inner cuff of tracheostomy almost daily. She states she was told that his cancer is inactive for now. Patient's is requesting transfer back to [facility] where her primary ENT and oncologist are. During hospitalization patient had CT chest, CT face, neck, CT head which showed improvement as per his last scans but does show a possible new mass and mediastinal and liver. Because of all of the above and as patient's primary providers are at [facility] further consult was sought and he has been accepted by Dr. Wilkinson and BMT team at [facility]. He has been discharged hemodynamically stable condition. Physical Exam Narrative: EXAM NARRATIVE: Young male who appears more than his stated age, malnourished, protein calorie malnourishment, unkept appearance, Crusting of right eye with chemosis of left eyelid Thick yellow mucoid secretions around tracheostomy site with pressure ulcers around tracheostomy tube, Tracheostomy tube in place, secured PEG tube insertion site no active bleeding, abdomen flat, scaphoid Lower extremity no edema gangrene ulcer, able to move all of his extremities Poor dental hygiene Prominent hair loss Malnourished, protein calorie malnourishment muscle mass loss, sarcopenia Able to understand my questions and answer with his head nodding in yes and no Neuro exam limited however able to move all of his extremities Is not able to completely open his right eye TS Data Data Completed and Pending: Completed Studies During Hospitalization Category Date Time Status CT chest wo con 7 1250 Urgent Cat Scan 09/21/20 13:[address] facial bones w o con* 17234 Routi ne Cat Scan 09/21/20 13:[address] head wo/w con 56327 Routine Cat Scan 09/21/20 13:[address] neck wo con 70 490 Routine Cat Scan 09/21/20 13:32 Completed XR chest 1V lindsey ble [id number] Stat Exams 09/20/20 23:36 Completed Pending at discharge Category Date Time Status Bacterial Antigen Stat Lab 09/21/20 14:50 Received Blood Culture Sta t Lab 09/21/20 01:23 Results Complete Blood Co unt w/Auto AM LABS Lab 09/22/20 04:00 Ordered Comprehensive Met abolic Panel AM LA BS Lab 09/22/20 04:00 Ordered Hemoglobin A1C AM LABS Lab 09/22/20 04:00 Ordered Immunochemical Fe elmer OCB Routine Lab 09/21/20 03:33 Uncollected Legionella Antige n STAT Stat Lab 09/21/20 14:50 Received MRSA by PCR Benny ne Lab 09/21/20 13:[address] at Lab 09/21/20 02:00 Received Sputum Culture an d Gram Stain Stat Lab 09/21/20 13:14 Ordered Vancomycin Trough Timed Lab 09/22/20 03:00 Ordered Labs from last 24 hours 09/21/20 09/21/20 09/21/20 15:10 14:50 14:50 WBC RBC Hgb Hct MCV MCH MCHC RDW Plt Count MPV Lymph % (Auto) Hitchcock % (Auto) Lymph # (Auto) Hitchcock # (Auto) Total Counted Atypical Lymphs % Absolute Neutrophi ls Segmented Neutroph ils Abs Segm Neuts (Ma n) Band Neutrophils Abs Band Neuts (Ma n) Absolute Lymphocyt es Lymphocytes (Manua l) Monocytes (Manual) Absolute Monocytes Eosinophils (Manua l) Absolute Eosinophi ls Basophils (Manual) Absolute Basophils Myelocytes Platelet Estimate Sodium Potassium Chloride Carbon Dioxide Anion Gap BUN Creatinine GFR Calculation Glucose Calculated Osmolal ity Lactate Calcium Magnesium Iron TIBC % Saturation Unsat Iron Binding Ferritin NT-Pro-B Natriuret Pep Vitamin B12 Procalcitonin TSH Urine Color Yellow Urine Appearance Clear Urine pH 5 Ur Specific Gravit y 1.005 Urine Protein 1+ H Urine Glucose (UA) Norm Urine Ketones 1+ H Urine Blood Neg Urine Nitrate Negative Urine Bilirubin Neg Urine Urobilinogen Norm Ur Leukocyte Jodee ase Negative Urine RBC Rare Urine WBC None Ur Squamous Epith Cells None Amorphous Sediment Not Reportable Urine Bacteria Trace Ur Random Sodium 10 Ur Random Potassiu m 13 Ur Random Chloride 11 SARS-CoV-2 Ag (Rap id) Negative 09/21/20 09/21/20 09/21/20 12:50 12:50 12:50 WBC RBC Hgb Hct MCV MCH MCHC RDW Plt Count MPV Lymph % (Auto) Hitchcock % (Auto) Lymph # (Auto) Hitchcock # (Auto) Total Counted Atypical Lymphs % Absolute Neutrophi ls Segmented Neutroph ils Abs Segm Neuts (Ma n) Band Neutrophils Abs Band Neuts (Ma n) Absolute Lymphocyt es Lymphocytes (Manua l) Monocytes (Manual) Absolute Monocytes Eosinophils (Manua l) Absolute Eosinophi ls Basophils (Manual) Absolute Basophils Myelocytes Platelet Estimate Sodium 142 Potassium 3.3 L Chloride 106 Carbon Dioxide 29 Anion Gap 10.3 BUN 17 Creatinine 1.0 GFR Calculation 82.3 L Glucose 105 Calculated Osmolal ity 296 H Lactate Calcium 8.5 Magnesium Iron 33 L TIBC 151 % Saturation 21.8 Unsat Iron Binding 118 Ferritin 3117 H NT-Pro-B Natriuret Pep 1200 H Vitamin B12 Procalcitonin 0.42 TSH 1.80 Urine Color Urine Appearance Urine pH Ur Specific Gravit y Urine Protein Urine Glucose (UA) Urine Ketones Urine Blood Urine Nitrate Urine Bilirubin Urine Urobilinogen Ur Leukocyte Jodee ase Urine RBC Urine WBC Ur Squamous Epith Cells Amorphous Sediment Urine Bacteria Ur Random Sodium Ur Random Potassiu m Ur Random Chloride SARS-CoV-2 Ag (Rap id) 09/21/20 09/21/20 09/21/20 12:50 01:32 00:35 WBC 38.1 H* RBC 2.26 L Hgb 6.9 L Hct 21.2 L MCV 93.8 MCH 30.5 MCHC 32.5 RDW 17.7 H Plt Count 400 MPV 9.7 Lymph % (Auto) Not Reportable Hitchcock % (Auto) Not Reportable Lymph # (Auto) Not Reportable Hitchcock # (Auto) Not Reportable Total Counted Atypical Lymphs % Absolute Neutrophi ls Segmented Neutroph ils Abs Segm Neuts (Ma n) Band Neutrophils Abs Band Neuts (Ma n) Absolute Lymphocyt es Lymphocytes (Manua l) Monocytes (Manual) Absolute Monocytes Eosinophils (Manua l) Absolute Eosinophi ls Basophils (Manual) Absolute Basophils Myelocytes Platelet Estimate Sodium Potassium Chloride Carbon Dioxide Anion Gap BUN Creatinine GFR Calculation Glucose Calculated Osmolal ity Lactate 1.3 Calcium Magnesium 1.9 Iron TIBC % Saturation Unsat Iron Binding Ferritin NT-Pro-B Natriuret Pep Vitamin B12 Procalcitonin TSH Urine Color Urine Appearance Urine pH Ur Specific Gravit y Urine Protein Urine Glucose (UA) Urine Ketones Urine Blood Urine Nitrate Urine Bilirubin Urine Urobilinogen Ur Leukocyte Jodee ase Urine RBC Urine WBC Ur Squamous Epith Cells Amorphous Sediment Urine Bacteria Ur Random Sodium Ur Random Potassiu m Ur Random Chloride SARS-CoV-2 Ag (Rap id) 09/21/20 09/21/20 09/21/20 00:35 00:35 00:35 WBC 43.5 H* RBC 2.54 L Hgb 7.6 L Hct 23.2 L MCV 91.3 MCH 29.9 MCHC 32.8 RDW 16.9 H Plt Count 396 MPV 9.6 Lymph % (Auto) Not Reportable Hitchcock % (Auto) Not Reportable Lymph # (Auto) Not Reportable Hitchcock # (Auto) Not Reportable Total Counted 100 Atypical Lymphs % 0.0 Absolute Neutrophi ls 34.4 H Segmented Neutroph ils 59 Abs Segm Neuts (Ma n) 25.7 H Band Neutrophils 20.0 Abs Band Neuts (Ma n) 8.7 H Absolute Lymphocyt es 0.9 L Lymphocytes (Manua l) 2 Monocytes (Manual) 9.0 Absolute Monocytes 3.9 H Eosinophils (Manua l) 0 Absolute Eosinophi ls 0.0 Basophils (Manual) 0.0 Absolute Basophils 0.0 Myelocytes 10.0 Platelet Estimate Normal Sodium 138 Potassium 2.9 L Chloride 99 Carbon Dioxide 29 Anion Gap 12.9 BUN 19 Creatinine 0.6 L GFR Calculation 148.5 H Glucose 117 H Calculated Osmolal ity 289 Lactate Calcium 8.9 Magnesium Iron TIBC % Saturation Unsat Iron Binding Ferritin NT-Pro-B Natriuret Pep Vitamin B12 > 2000 H Procalcitonin TSH Urine Color Urine Appearance Urine pH Ur Specific Gravit y Urine Protein Urine Glucose (UA) Urine Ketones Urine Blood Urine Nitrate Urine Bilirubin Urine Urobilinogen Ur Leukocyte Jodee ase Urine RBC Urine WBC Ur Squamous Epith Cells Amorphous Sediment Urine Bacteria Ur Random Sodium Ur Random Potassiu m Ur Random Chloride SARS-CoV-2 Ag (Rap id) Addt'l Data from Hospital Stay: Laboratory Results WBC 38.1 10^3/uL (4.0 -10.0) H* 09/21/20 12:50 RBC 2.26 10^6/uL (4.1 -5.3) L 09/21/20 12:50 Hgb 6.9 g/dL (11.7-16 .6) L 09/21/20 12:50 Hct 21.2 % (42.0-52.0 ) L 09/21/20 12:50 MCV 93.8 fL (80-94) 09/21/20 12:50 MCH 30.5 pg (28.0-34. 0) 09/21/20 12:50 MCHC 32.5 g/dL (30.0-3 6.0) 09/21/20 12:50 RDW 17.7 % (12.1-15.1 ) H 09/21/20 12:50 Plt Count 400 10^3/cmm (130 -400) 09/21/20 12:50 MPV 9.7 fL (7.4-10.4) 09/21/20 12:50 Lymph % (Auto) Not Reportable 09/21/20 12:50 Hitchcock % (Auto) Not Reportable 09/21/20 12:50 Lymph # (Auto) Not Reportable 09/21/20 12:50 Hitchcock # (Auto) Not Reportable 09/21/20 12:50 Total Counted 100 (0-100) 09/21/20 00:35 Atypical Lymphs % 0.0 % (0-5) 09/21/20 00:35 Absolute Neutrophi ls 34.4 10^3/cmm (1. 4-6.5) H 09/21/20 00:35 Segmented Neutroph ils 59 % 09/21/20 00:35 Abs Segm Neuts (Ma n) 25.7 10/cmm (1.6- 7.1) H 09/21/20 00:35 Band Neutrophils 20.0 % 09/21/20 00:35 Abs Band Neuts (Ma n) 8.7 10^3/cmm (0.0 -1.2) H 09/21/20 00:35 Absolute Lymphocyt es 0.9 10^3/cmm (1.2 -3.4) L 09/21/20 00:35 Lymphocytes (Manua l) 2 % 09/21/20 00:35 Monocytes (Manual) 9.0 % 09/21/20 00:35 Absolute Monocytes 3.9 10^3/cmm (0.1 -0.6) H 09/21/20 00:35 Eosinophils (Manua l) 0 % 09/21/20 00:35 Absolute Eosinophi ls 0.0 10^3/cmm (0.0 -0.7) 09/21/20 00:35 Basophils (Manual) 0.0 % 09/21/20 00:35 Absolute Basophils 0.0 10^3/cmm (0.0 -0.2) 09/21/20 00:35 Myelocytes 10.0 % 09/21/20 00:35 Platelet Estimate Normal (Normal) 09/21/20 00:35 Sodium 142 mmol/L (136-1 45) 09/21/20 12:50 Potassium 3.3 mmol/L (3.5-5 .1) L 09/21/20 12:50 Chloride 106 mmol/L (98-10 7) 09/21/20 12:50 Carbon Dioxide 29 mmol/L (22-29) 09/21/20 12:50 Anion Gap 10.3 (5-19) 09/21/20 12:50 BUN 17 mg/dL (6-20) 09/21/20 12:50 Creatinine 1.0 mg/dL (0.7-1. 2) 09/21/20 12:50 GFR Calculation 82.3 mL/min (90-1 30) L 09/21/20 12:50 Glucose 105 mg/dL (65-115 ) 09/21/20 12:50 Calculated Osmolal ity 296 mOsm/kg (285- 295) H 09/21/20 12:50 Lactate 1.3 mmol/L (0.5-2 .2) 09/21/20 01:32 Calcium 8.5 mg/dL (8.5-10 .5) 09/21/20 12:50 Magnesium 1.9 mg/dL (1.7-2. 3) 09/21/20 00:35 Iron 33 ug/dL (59-158) L 09/21/20 12:50 TIBC 151 mcg/dl 09/21/20 12:50 % Saturation 21.8 % (20-50) 09/21/20 12:50 Unsat Iron Binding 118 ug/dL (112-34 7) 09/21/20 12:50 Ferritin 3117 ng/mL (30-40 0) H 09/21/20 12:50 NT-Pro-B Natriuret Pep 1200 pg/mL (0-125 ) H 09/21/20 12:50 Vitamin B12 > 2000 pg/mL (232 -1245) H 09/21/20 00:35 Procalcitonin 0.42 ng/mL (0-0.5 ) 09/21/20 12:50 TSH 1.80 uIU/mL (0.27 -4.20) 09/21/20 12:50 Urine Color Yellow (Yellow) 09/21/20 14:50 Urine Appearance Clear (CLEAR) 09/21/20 14:50 Urine pH 5 (5-7) 09/21/20 14:50 Ur Specific Gravit y 1.005 (1.005-1.0 30) 09/21/20 14:50 Urine Protein 1+ (Negative) H 09/21/20 14:50 Urine Glucose (UA) Norm (Normal) 09/21/20 14:50 Urine Ketones 1+ (Negative) H 09/21/20 14:50 Urine Blood Neg (Negative) 09/21/20 14:50 Urine Nitrate Negative (Negati ve) 09/21/20 14:50 Urine Bilirubin Neg (Negative) 09/21/20 14:50 Urine Urobilinogen Norm mg/dL (Negat garcía) 09/21/20 14:50 Ur Leukocyte Jodee ase Negative (Negati ve) 09/21/20 14:50 Urine RBC Rare /hpf (0-2) 09/21/20 14:50 Urine WBC None /hpf (0-5) 09/21/20 14:50 Ur Squamous Epith Cells None /hpf (0-5) 09/21/20 14:50 Amorphous Sediment Not Reportable 09/21/20 14:50 Urine Bacteria Trace /hpf (NONE) 09/21/20 14:50 Ur Random Sodium 10 mmol/L 09/21/20 14:50 Ur Random Potassiu m 13 mmol/L 09/21/20 14:50 Ur Random Chloride 11 mmol/L 09/21/20 14:50 SARS-CoV-2 Ag (Rap id) Negative (Negati ve) 09/21/20 15:10 Impressions Chest X-Ray 09/20/20 23:36 IMPRESSION: Multifocal airspace opacities of the right lung; multifocal bronchopneumonia is a consideration. Correlate with respiratory symptoms. Chest CT 09/21/20 13:17 IMPRESSION: 1. Small right pleural effusion with patchy infiltrates in the right lower lobe suspicious for pneumonia. 2. Patchy subtotal consolidation right upper lobe laterally described above with hazy surrounding groundglass infiltrates. In addition prominent right hilar masslike lymphadenopathy with bronchovascular thickening. 3. Interstitial thickening with micronodular infiltrates in the inferior segment right upper lobe and right lower lobe. 4. Above constellation of findings likely in part due to pneumonia, however right hilar masslike lymphadenopathy and right upper lobe masslike consolidation suspicious for metastatic disease. 5. 5 mm groundglass opacity right upper lobe. 6. Recommend interval follow-up after antibiotic therapy. 7. In addition low-attenuation lesion in the dome of the liver measuring 2.1 cm is new since October 01, 2019 suspicious for metastatic disease. This can be further evaluated with ultrasound or contrast-enhanced CT abdomen pelvis with liver protocol. Head CT 09/21/20 13:23 IMPRESSION: 1. No evidence of intracranial hemorrhage or mass effect. No hydrocephalus. 2. No evidence of progressed intracranial disease. 3. Previously described metastatic involvement involving the right inferior and medial temporal lobe with dural thickening appears improved today. No significant intracranial edema or mass effect. 4. Interval improvement in the posterior nasopharynx lymphoma mass with stable erosive changes involving the right petrous apex and skull base as described on the face CT. 5. Opacification right mastoid air cells with partial opacification paranasal sinuses. Face CT 09/21/20 13:32 IMPRESSION: 1. Significant interval improvement in the posterior nasopharynx lymphoma consistent with interval response to therapy. 2. Small amount of soft tissue thickening in the right posterior lateral pharyngeal recess measuring 2.2 x 1.6 CM. This can be further evaluated with PET/CT. 3. Previously described erosive bony changes involving the right skull base, petrous apex, and clivus as well as the right lamina papyracea and sphenoid sinus are similar in appearance. 4. Partial opacification paranasal sinuses consistent with sinusitis. Opacification right mastoid air cells. Neck CT 09/21/20 13:32 IMPRESSION: 1. No cervical lymphadenopathy. No evidence of progressed disease in the neck. 2. Interval improvement in the posterior nasopharynx lymphoma mass with residual soft tissue thickening in the posterior lateral pharyngeal recess described above. 3. Stable bony involvement of the right petrous apex extending to the skull base and clivus. Extension to the right sphenoid sinus and right middle cranial fossa as described on the face and head CT. 4. Medial deviation of the right vocal cord suspicious for focal cord paralysis unchanged. 5. Prior tracheostomy. 6. No other significant changes. Vitals: Last Vital Signs Temp 98.8 F 09/21/20 16:00 Pulse 88 09/21/20 16:00 Resp 18 09/21/20 16:00 BP 104/65 09/21/20 16:00 Pulse Ox 93 09/21/20 16:00 TS Medications Medications Home Medications pantoprazole 40 mg PO DAILY 06/28/20 [History Confirmed 09/21/20] acyclovir 400 mg PO TID 09/21/20 [History Confirmed 09/21/20] acyclovir 400 mg PO TID 09/21/20 [History Confirmed 09/21/20] allopurinol 300 mg PO DAILY 09/21/20 [History Confirmed 09/21/20] amoxicillin-pot clavulanate [Augmentin] 1 tab PO BID 09/21/20 [History Confirmed 09/21/20] ciprofloxacin HCl [Cipro] 500 mg PO BID 09/21/20 [History Confirmed 09/21/20] citalopram [Celexa] 40 mg PO BEDTIME 09/21/20 [History Confirmed 09/21/20] docusate sodium [Colace] 100 mg PO BID 09/21/20 [History Confirmed 09/21/20] fluconazole 400 mg PO DAILY 09/21/20 [History Confirmed 09/21/20] oxycodone 5 mg PO Q4H PRN 09/21/20 [History Confirmed 09/21/20] oxycodone 5 mg PO Q4H PRN 09/21/20 [History Confirmed 09/21/20] sulfamethoxazole-trimethoprim [Bactrim DS] 1 tab PO .ON MON AND 09/21/20 [History Confirmed 09/21/20] Active Medications Hydrocodone Bitart/Acetaminophen (Hydrocodone-Acetaminophen 5-325 Mg Tablet) 1 tab PO Q4H PRN PRN Reason: Pain Last Admin: 09/21/20 05:00 Dose: 1 tab Documented by: Acetylcysteine (Acetylcysteine 200 Mg/Ml Sdv 4 Ml) 100 mg INHALATION Q4H.RESPIRATORY IVÁN Last Admin: 09/21/20 15:25 Dose: 100 mg Documented by: Albuterol/Ipratropium (Ipratropium-Albuterol 3 Ml Neb) 3 ml INHALATION Q4H.RESPIRATORY IVÁN Last Admin: 09/21/20 15:25 Dose: 3 ml Documented by: Piperacillin Sod/Tazobactam (Sod 3.375 gm/ Sodium Chloride) 50 mls @ 12.5 mls/hr IV Q8H COUNT INCLUDES THE [facility]; Protocol Last Infusion: 09/21/20 16:24 Dose: Infused Documented by: Potassium Chloride/Dextrose/Sod Cl (Dextrose 5%-Ns + Kcl 40) 40 meq in 1,000 mls @ 30 mls/hr IV .Q24H IVÁN Last Admin: 09/21/20 04:17 Dose: 30 mls/hr Documented by: Vancomycin HCl 1,000 mg/ (Sodium Chloride) 250 mls @ 250 mls/hr IV Q12H IVÁN Last Infusion: 09/21/20 06:16 Dose: Infused Documented by: Iron Sucrose 200 mg/ Sodium (Chloride) 110 mls @ 220 mls/hr IV Q24H IVÁN Stop: 09/25/20 14:29 Last Infusion: 09/21/20 16:24 Dose: Infused Documented by: Non-Formulary Medication (Prednisolone Sod Ph-Moxiflox) 1 drop EYEAFF TID IVÁN Last Admin: 09/21/20 15:40 Dose: Not Given Documented by: Non-Formulary Medication (Carboxymethylcellulose Sodium [Refresh Liquigel]) 1 drop EYEAFF DAILY PRN PRN Reason: dry eye(s) Pantoprazole Sodium (Pantoprazole 40 Mg Sdv) 40 mg IVP Q12H IVÁN Last Admin: 09/21/20 15:49 Dose: 40 mg Documented by: Discharge Plan Discharge Patient Disposition: Home Condition: Stable Prescriptions: No Action Colace 50 mg/5 mL Liquid 100 mg PO BID RF: 0 acyclovir 200 mg/5 mL Suspension 400 mg PO TID RF: 0 Celexa 10 mg/5 mL Solution 40 mg PO BEDTIME RF: 0 fluconazole 200 mg Tablet 400 mg PO DAILY RF: 0 oxycodone 5 mg/5 mL Solution 5 mg PO Q4H PRN (Reason: Pain) RF: 0 acyclovir 400 mg Tablet 400 mg PO TID RF: 0 Cipro 500 mg Tablet 500 mg PO BID RF: 0 Bactrim DS 800-160 mg Tablet 1 tab PO .ON SAT AND RF: 0 allopurinol 300 mg Tablet 300 mg PO DAILY RF: 0 Augmentin 875-125 mg Tablet 1 tab PO BID RF: 0 oxycodone 5 mg Tablet 5 mg PO Q4H PRN (Reason: Pain) RF: 0 pantoprazole 40 mg tablet,delayed release (DR/EC) 40 mg PO DAILY RF: 0 Discharge Orders: Transfer Out of Facility (Order); Ordered 09/21/20 Ordered By: Demetris Nettles Referrals: Freeman Anderson DO [Primary Care Provider] - Patient Instructions: Opioid Safety Transfer Attestations Time Spent in Transfer Care*: greater than 30 min Specific Discharge Activities: Specific discharge activities: educating and/or supporting family/caregiver, discussing with pcp/other providers, discussing with case investigator/social workers/dc planners, documenting/other paperwork and evaluating patient/reviewing data Status at Transfer: Cognitive status at transfer: mildly impaired cognition, Behavioral status at transfer: cooperative, Functional status at transfer: uses cane/walker Overall status at transfer: patient is back to baseline Quality Metrics Clinical Quality Measures: During this hospital stay, did patient experience: None Coding Level of Care Code Acute Foil Stamp Operator for Sarai Fwd Diagnoses Pneumonia J18.9 Laterality: right Lung location: unspecified part of lung Pneumonia type: due to unspecified organism Hypokalemia E87.6 B-cell lymphoma C85.10 B-cell lymphoma type: unspecified B-cell Sepsis A41.[address] Z93.0 Cerebellar mass G93.89 Metastasis C79.9
--- NOTE | 2020-09-21 18:06 | PC.NURSE ---
Attempted to call pt's mother to inform family of transfer. No answer, left message to return call to [facility].
--- NOTE | 2020-09-21 18:15 | PC.NURSE ---
Pt's mother returned call. Notified her of patients transfer.
[2020-09-22] VITALS (19 sets, daily range): BP systolic 95–124; BP diastolic 58–78; PULSE 48–84; RESP 16–18; TEMP 36.6–37.1; O2SAT 92–100
[2020-09-22] MEDS: acetylcysteine 200 mg/mL SDV 4 mL 100 MG INHALATION ×4 (00:15→15:10)
[2020-09-22] MEDS: ipratropium-albuterol 3 mL Neb INHALATION ×4 (00:16→15:09)
[2020-09-22] MEDS: sodium chloride 0.9% (100 ml) 100 ML 50 ML (00:18)
[2020-09-22] MEDS: pantoprazole 40 mg SDV IVP ×2 (02:48→15:05)
[2020-09-22] MEDS: piperacillin-tazobactam 3.375 GM in sodium chloride 0.9% (plus) 50 ML IV ×2 (02:49→11:14)
[2020-09-22] MEDS: dextrose 5%-ns + KCl 40 40 MEQ/1,000 ML BAG 30 MEQ IV (02:52)
[2020-09-22 04:05] LABS: Basophils % 0.1 %; Hematocrit 24.9 % (42.0-52.0); Hemoglobin 7.9 g/dL (11.7-16.6); Lymphocytes # 0.4 10^3/uL (0.8-4.8); Lymphocytes % 0.9 %; Mean Corpuscular HGB Conc 31.7 g/dL (30.0-36.0); Mean Corpuscular Hemoglobin 29.5 pg (28.0-34.0); Mean Corpuscular Volume 92.9 fL (80-94); Mean Platelet Volume 9.5 fL (7.4-10.4); Monocytes # 2.3 10^3/uL (0.2-0.9); Monocytes % 5.9 %; Neutrophils # 30.53 10^3/uL (1.8-7.7); Neutrophils % 77.2 %; Nucleated Red Blood Cells # 0.1 /100WBC; Nucleated Red Blood Cells % 0.2 %; Platelet Count 377 10^3/cmm (130-400); Red Blood Count 2.68 10^6/uL (4.1-5.3); Red Cell Distribution Width 18.3 % (12.1-15.1)
[2020-09-22 04:21] LABS: Alanine Aminotransferase 9 U/L (0-41); Albumin Level 2.7 g/dL (3.5-5.2); Alkaline Phosphatase 151 IU/L (40-130); Anion Gap 11.3 (5-19); Aspartate Amino Transferase 10 U/L (0-40); Blood Urea Nitrogen 15 mg/dL (6-20); Calcium 8.3 mg/dL (8.5-10.5); Carbon Dioxide 27 mmol/L (22-29); Chloride 109 mmol/L (98-107); Globulin 2.2 g/dL (1.3-4.6); Glomerular Filtration Rate 66.7 mL/min (90-130); Glucose 92 mg/dL (65-115); Osmolality Calculated 298 mOsm/kg (285-295); Potassium 3.3 mmol/L (3.5-5.1); Sodium 144 mmol/L (136-145); Total Bilirubin 0.4 mg/dL (0.15-1.2); Total Protein 4.9 g/dL (6.6-8.7)
[2020-09-22 04:23] LABS: Estmated Average Glucose 105; Hemoglobin A1C 5.3 % (4.0-6.0); Slide Review Slide Review Perform; White Blood Count 39.6 10^3/uL (4.0-10.0)
[2020-09-22 04:25] LABS: Vancomycin Trough 26.1 ug/mL (10-15)
[2020-09-22] MEDS: vancomycin 1,000 MG in sodium chloride 0.9% 250 ML 250 MG IV (10:02)
--- NOTE | 2020-09-22 12:24 | PC.CHAP ---
Pastoral Care Encounter/Spiritual Assessment Type of Contact [] Declined phlebotomist medical lab assistant visit [] Patient/Family/Request visit [] Outpatient visit [] Follow-up visit [] Physician referral [] Code/Alert [] Routine visit [] Staff referral [] Actively dying [] Patient sleeping [] Family support [] [] Out of room [] Palliative care [] [] Receiving care in room [] Pre-surgical visit [] Trauma [] Long length of stay [] ICU visit [x] Other: unable to communicate Relational/Emotional Strength [] Patient feels connected with others/family/visitors/staff [] Distress [] Loneliness/isolation [] Abandonment Spirituality of Patient [] Person of Bhumika [] Attends Sabianism of their Bhumika [] Believes in Prayer [] Reads Bible or Latter Day materials [] There are Spiritual issues to be addressed Chef French Interventions [] Prayer [] Active listening [] Non-anxious presence [] Spiritual/emotional support [] Crisis/trauma care [] Spiritual counseling [] Bereavement support [] Provided bereavement packet [] Provided Bible/devotional materials [] Provided toy/stuffed animal, coloring book to patient or family member [] Provided Communion [] Anointing/[place] [] Salvation [] Completed spiritual assessment [] Other: Impact on Illness or Injury [] Angry [] Fearful [] Anxious [] Often cries [] Exhaustion [] Unable to work [] Unable to attend mosque [] Unable to walk/stand [] Unable to read [] Unable to drive [] Unable to eat/drink [] Unable to sleep [] Unable to be with family [] Patient intubated [] Other: Summary unable to communicate Time spent with patient 5 mins
--- NOTE | 2020-09-22 13:40 | PC.RESP ---
Medication not given D/T pt busy with procedure.
[2020-09-22] MEDS: iron sucrose 200 MG in sodium chloride 0.9% (100 ml) 100 ML 220 MG IV (15:06)
--- NOTE | 2020-09-22 15:26 | PC.NURSE ---
Placed call and gave report to [facility] to John Whitehead RN.
--- NOTE | 2020-09-22 15:44 | PM.PN ---
Subjective Subjective: Interval history: Patient transferred yesterday but did not get a bed for still here. Overnight patient did not have any acute abnormality. On examination sitting up in bed more awake today. Blood pressures have remained stable. Still saturating well on room air. Denies any active complaints. Vitals/I&O/Wt Last Vital Signs Temp 98.7 F 09/22/20 12:00 Pulse 84 09/22/20 15:19 Resp 18 09/22/20 15:15 BP 105/61 09/22/20 12:00 Pulse Ox 98 09/22/20 15:15 09/22/20 09/22/20 09/22/20 06:59 14:59 22:59 Intake Total 1177.5 / 1742.5 250 / 250 50 / 300 Output Total 725 / 1500 450 / 450 Balance 452.5 / 242.5 -200 / -200 50 / -150 Weight last 48 hrs Weight 45.359 kg Physical Exam Narrative: EXAM NARRATIVE: Young male who appears more than his stated age, malnourished, protein calorie malnourishment, unkept appearance, Crusting of right eye with chemosis of left eyelid Thick yellow mucoid secretions around tracheostomy site with pressure ulcers around tracheostomy tube, Tracheostomy tube in place, secured PEG tube insertion site no active bleeding, abdomen flat, scaphoid Lower extremity no edema gangrene ulcer, able to move all of his extremities Poor dental hygiene Prominent hair loss Malnourished, protein calorie malnourishment muscle mass loss, sarcopenia Able to understand my questions and answer with his head nodding in yes and no Neuro exam limited however able to move all of his extremities Is not able to completely open his right eye Data : 09/22/20 03:56 09/22/20 03:56 Micro: Microbiology 09/21/20 02:00 Sputum Culture - Preliminary Sputum - Expectorated Sputum Staphylococcus aureus Moraxella catarrhalis 09/21/20 04:10 Gram Stain - Final Sputum - Endotracheal Wash 09/21/20 01:23 Blood Culture - Preliminary Blood NEGATIVE TO DATE 09/21/20 01:21 Blood Culture - Preliminary Blood NEGATIVE TO DATE 09/21/20 14:50 Legionella Urinary Antigen - Final Urine,Clean Catch Bacterial Antigens - Final A&P Assessment and plan (1) Pneumonia: Status: Acute Qualifiers: Laterality: right Lung location: unspecified part of lung Pneumonia type: due to unspecified organism Qualified Code(s): J18.9 - Pneumonia, unspecified organism (2) Hypokalemia: Status: Acute (3) B-cell lymphoma: Status: Acute Qualifiers: B-cell lymphoma type: unspecified B-cell (4) Sepsis: Status: Acute (5) Tracheostomy in place: Status: Acute (6) Cerebellar mass: Status: Acute (7) Metastasis: Status: Acute Additional A&P Information Sepsis due to suspected bacterial community-acquired pneumonia: Suspicion of aspiration pneumonia. Sputum culture growing staph and Moraxella. Continue Vanco and Zosyn for now. Speech and swallow evaluation and advance diet accordingly. Keep mean arterial pressure around 65. Continue with DuoNebs and Mucomyst. 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 Acute on chronic normocytic anemia: Hemoglobin 6.9 yesterday. Received 1 red blood transfusion. Hemoglobin up appropriately. Iron panel appreciated. No active bleeding, Check stool occult blood test Avoid anticoagulation for DVT ppx Patient has been accepted at [facility] by his primary oncologist and ENT team. Patient is awaiting bed. Patient's care discussed in detail with his . Attestations Medical Necessity Statement*: Patient requires further hospitalization for management of sepsis due to pneumonia, post tracheostomy status in setting of high-grade B-cell lymphoma with metastasis to brain while he awaits bed at [facility]. Time Spent in Patient Care: Greater than 35 minutes (>than 50% of time spent in counselling and/or direct pt care on unit). Coding Level of Care Code Acute Live In Housekeeper for [facility] Diagnoses Pneumonia J18.9 Laterality: right Lung location: unspecified part of lung Pneumonia type: due to unspecified organism Hypokalemia E87.6 B-cell lymphoma C85.10 B-cell lymphoma type: unspecified B-cell Sepsis A41.[address] Z93.0 Cerebellar mass G93.89 Metastasis C79.9
--- NOTE | 2020-09-22 16:33 | PC.NUTR ---
Low BMI screen. Pt screened at nutritional risk due to BMI of 15.2, indicating underweight range. Ht 68 in, wt 100 lbs. However, pt has been transferred out of facility at this time so full nutritional assessment unable to be completed.
--- NOTE | 2020-09-23 11:34 | PC.RESP ---
SMOKING CESSATION INFORMATION SENT TO PATIENT.
== END 2020-09-22 16:40 | disposition short-term general hospital (02) | DRG 871 ==
LOC: ER 09-21 01:21 → MEDSURG 09-21 06:52
PROVIDERS: Admitting Provider Internal Medicine; Emergency Provider Emergency Medicine; PCP Family Medicine; Visit Provider Student in an Organized Health Care Education/Training Program
DX: A41.9 Sepsis, unspecified organism (principal); J69.0 Pneumonitis due to inhalation of food and vomit; J98.59 Other diseases of mediastinum, not elsewhere classified; C85.18 Unspecified B-cell lymphoma, lymph nodes of multiple sites; Z93.0 Tracheostomy status; Z91.19 Patient's noncompliance with other medical treatment and regimen; E87.6 Hypokalemia; F41.8 Other specified anxiety disorders; G47.30 Sleep apnea, unspecified; F17.210 Nicotine dependence, cigarettes, uncomplicated; G51.0 Bell's palsy; D64.9 Anemia, unspecified; R16.0 Hepatomegaly, not elsewhere classified; B95.8 Unspecified staphylococcus as the cause of diseases classified elsewhere
CPT/HCPCS: 36415; 36430; 36591; 70470; 70486; 70490; 71045; 71250; 80048; 80053; 80202; 81001; 82436; 82607; 82728; 83036; 83540; 83550; 83605; 83735; 83880; 84133; 84145; 84300; 84443; 85007; 85025; 86403; 86850; 86900; 86920; 87040; 87070; 87077; 87186; 87205; 87426; 87449; 92610; 94640; 94799; 96365; 96367; 99285; C9113; J1756; J2543; J3370; J3480; J7050; J7608; P9016; Q9967